=== PATIENT | female | born 1960 | race Hispanic/Latino ===

== ENCOUNTER 2017-11-04 11:13 | Inpatient (IN) | payer OTHER ==
[~2017-11-04] VITALS: Ht 152.4 cm; Wt 70.5 kg
[~2017-11-04 11:13] MED LIST: ATORVASTATIN CA20 MG PO; BENTYL10 MG PO; FENOFIBRATE145 MG PO; FEOSOL325 MG PO; HUMALOG100 UNITS/ SQ; Insulin Detemir SQ; LIPITOR10 MG PO; LOPRESSOR25 MG PO; METFORMIN HCL500 MG PO; TRICOR145 MG PO
[2017-11-04] MEDS ORDERED: MORPHINE SULFATE 4 MG/ML SYR IV STA (11:26)
[2017-11-04] MEDS ORDERED: SODIUM CHLORIDE 0.9% 1000ML 1,000 ML IV STA (11:26)
[2017-11-04] MEDS ORDERED: ONDANSETRON HCL INJ 2 MG/ML VIAL IV STA (11:26)
[2017-11-04] MEDS ORDERED: BELLADONNA ALK/PHENOBARBITAL 5 ML UDC PO ONE (11:30)
[2017-11-04] MEDS ORDERED: LIDOCAINE VISC 2% SOLN 15 ML UDC PO ONE (11:30)
[2017-11-04] MEDS ORDERED: ASPIRIN 81 MG CHEW TAB PO ONE (11:30)
[2017-11-04] MEDS ORDERED: MAGNESIUM/ALUMINUM/SIMETHICONE 30 ML UDC PO ONE (11:30)
[2017-11-04] MEDS ORDERED: MORPHINE SULFATE 2 MG/ML SYR ONE (12:01)
[2017-11-04 12:02] LABS: ALBUMIN/GLOBULIN RATIO 0.5 (0.8-2.0); ALKALINE PHOSPHATASE 141 IU/L (40-150); BLOOD UREA NITROGEN 13 mg/dL (7-26); BUN/CREATININE RATIO 17 (6-25); CALCIUM 9.3 mg/dL (8.4-10.2); CARBON DIOXIDE 20 mmol/L (22-29); CHLORIDE 100 mmol/L (98-107); CHOL/HDL RATIO 13.7 (3.0-3.6); CHOLESTEROL 343 MD/DL (0-199); CREATINE KINASE 26 IU/L (29-168); CREATININE, SERUM 0.75 mg/dL (0.57-1.11); EST GLOMERULAR FILTRATION RATE > 60 ML/MIN (60-); GLUCOSE 249 mg/dL (74-118); HDL CHOLESTEROL 25 MG/DL (40-60); LIPASE 730 U/L (8-78); SODIUM 132 mmol/L (136-145)
--- NOTE | 2017-11-04 12:06 | Diagnostic Imaging Report ---
PROCEDURE: A single AP view of the chest. COMPARISON: Patients [facility], , CHEST SINGLE (PORTABLE), 07/06/2017, 5:57. INDICATIONS: SEVERE ABDOMEN PAIN FINDINGS: Lines/tubes: None. Lungs: The lungs are well inflated and clear. There is no evidence of pneumonia or pulmonary edema. Pleura: There is no pleural effusion or pneumothorax. Heart and mediastinum: Prominence of the cardiac silhouette, which may be partly due to portable AP projection. Pulmonary vasculature is normal. Bones: No acute bony abnormality. IMPRESSION: 1. No acute cardiopulmonary abnormalities. 2. Prominent cardiac silhouette,, which may be partly due to the AP projection. Mayo Junior M.D. Dictated by: Mayo Junior M.D. on 11/04/2017 at 12:14 Electronically approved by: Mayo Junior M.D. on 11/04/2017 at 12:14
[2017-11-04 12:09] LABS: TROPONIN I 0.017 ng/mL (0-0.300)
[2017-11-04 12:10] LABS: BASOPHILS % 0.3 % (0.0-1.0); EOSINOPHILS # (AUTO) 0.1 (0.0-0.4); EOSINOPHILS % 1.2 % (0.0-6.0); HEMOGLOBIN 14.5 g/dL (12.0-16.0); LYMPHOCYTES # (AUTO) 5.1 (1.0-3.2); LYMPHOCYTES % 57.9 % (18.0-39.1); MEAN CORPUSCULAR HEMOGLOBIN 33.4 pg (28-32); MEAN CORPUSCULAR HGB CONC 40.3 g/dL (31-35); MEAN CORPUSCULAR VOLUME 82.9 fL (81-99); MONOCYTES # (AUTO) 0.4 (0.2-0.8); MONOCYTES % 4.1 % (4.4-11.3); NEUTROPHILS # (AUTO) 3.2 (2.1-6.9); NEUTROPHILS % 36.3 % (38.7-80.0); PLATELET COUNT 303 x10e3/uL (140-360); RED BLOOD COUNT 4.34 x10e6/uL (3.6-5.1); RED CELL DISTRIBUTION WIDTH 11.9 % (11.7-14.4)
[2017-11-04 13:03] LABS: ALANINE AMINOTRANSFERASE 35 IU/L (0-55)
[2017-11-04 13:12] LABS: TRIGLYCERIDES 3239 MG/DL (0-149)
--- NOTE | 2017-11-04 13:17 | Diagnostic Imaging Report ---
PROCEDURE:GALLBLADDER ULTRASOUND COMPARISON:[facility], CT, CT ABDOMEN WOW, 07/07/2017, 13:09. INDICATIONS:RUQ Pain FINDINGS: Liver: 14.5 cm. Normal hepatic parenchymal echogenicity. No focal mass. Main portal vein: 1.3 cm. Hepatopetal flow. Gallbladder: No stones, sludge, wall thickening, or pericholecystic fluid. Common Bile Duct: 0.4 cm. No echogenic filling defect. Sonographic Davis's sign: Negative Right kidney: 11.9 cm. No solid or cystic mass, echogenic calculi, or hydronephrosis. Normal parenchymal echogenicity. Pancreas: The visualized portions of the pancreas are normal. Inferior vena cava: Normal. Aorta: Normal. Ascites: None. CONCLUSION: 1. no sonographic evidence of cholelithiasis or cholecystitis. 2. Essentially unremarkable exam. Mayo Junior M.D. Dictated by: Mayo Junior M.D. on 11/04/2017 at 13:25 Electronically approved by: Mayo Junior M.D. on 11/04/2017 at 13:25
[2017-11-04 13:33] LABS: BILIRUBIN,URINE NEGATIVE (NEGATIVE); CLARITY,URINE CLEAR (CLEAR); COLOR,URINE YELLOW (YELLOW); KETONES,URINE NEGATIVE (NEGATIVE); LEUKOCYTE ESTERASE ,URINE NEGATIVE (NEGATIVE); NITRITE,URINE NEGATIVE (NEGATIVE); PROTEIN,URINE DIPSTICK NEGATIVE (NEGATIVE); URINE UROBILINOGEN 0.2 mg/dL (0.2 - 1)
[2017-11-04 14:16] LABS: EPITHELIAL CELLS,URINE MANY /LPF
[2017-11-04 14:17] LABS: RBC,URINE 0-5 /HPF (0-5); WBC,URINE (MAN) 0-5 /HPF (0-5)
--- NOTE | 2017-11-04 14:34 | Diagnostic Imaging Report ---
PROCEDURE: CT ABDOMEN AND PELVIS WITH CONTRAST TECHNIQUE: The abdomen and pelvis were scanned utilizing a multidetector helical scanner from the diaphragm to the lesser trochanter after the IV administration of 100 cc of Isovue 370 and the oral administration of water. Coronal and sagittal multiplanar reformations were obtained. COMPARISON: Patients [facility], CT, CT ABDOMEN/PELVIS W, 07/06/2017, 3:44. Patients [facility], CT, CT ABDOMEN WOW, 07/07/2017, 13:09. INDICATIONS: ABDOMINAL PAIN FINDINGS: LOWER THORAX: Minimal bilateral lower lobe dependent atelectasis. HEPATOBILIARY: Decrease attenuation of the hepatic parenchyma compared to the spleen, consistent with steatosis.. No focal lesions. No biliary ductal dilation. Gallbladder is unremarkable. SPLEEN: No splenomegaly.. PANCREAS: No focal lesion or ductal dilation. ADRENALS: Stable 2.3 x 2.0 cm right adrenal lesion previously characterized as a benign, lipid rich adenoma. Left adrenal gland is unremarkable. KIDNEYS/URETERS: No hydronephrosis, stones, or solid mass lesions. PELVIC ORGANS/BLADDER: Bladder is unremarkable. Uterus is unremarkable. No adnexal masses. PERITONEUM / RETROPERITONEUM: No free air or fluid. LYMPH NODES: No lymphadenopathy. VESSELS: The atherosclerotic calcification of the abdominal aorta. GI TRACT: No bowel dilation or evidence of obstruction. No pericolonic inflammatory changes. Stomach is grossly unremarkable. BONES AND SOFT TISSUES: No acute bony abnormalities. Facet hypertrophy L4-L5, L5-S1, which is stable. No lytic lesions. Soft tissues are grossly unremarkable. IMPRESSION: 1. No acute abdominopelvic abnormalities. 2. Diffuse hepatic steatosis. No focal lesions. 3. Stable right adrenal benign, lipid rich adenoma. No further diagnostic imaging is indicated. Mayo Junior M.D. Dictated by: Mayo Junior M.D. on 11/04/2017 at 14:42 Electronically approved by: Mayo Junior M.D. on 11/04/2017 at 14:42
[2017-11-04] MEDS ORDERED: IOPAMIDOL 370 MG/ML 200 ML INFUS..BTL INJ ONE (15:12)
[2017-11-04] MEDS ORDERED: SODIUM CHLORIDE 0.9% 50ML 50 ML ONE (15:12)
[2017-11-04] MEDS ORDERED: MORPHINE SULFATE 2 MG/ML SYR IV STA (15:13)
[2017-11-04] MEDS ORDERED: ONDANSETRON HCL INJ 2 MG/ML VIAL IV PRN (15:15)
[2017-11-04] MEDS ORDERED: HYDROMORPHONE 1MG/1ML INJ IV STA (15:40)
[2017-11-04] MEDS ORDERED: PROMETHAZINE 12.5MG/ NACL 0.9% 12.5 MG/50 ML BAG IV ONE (15:45)
[2017-11-04] MEDS ORDERED: DICYCLOMINE HCL 10 MG CAP PO PRN (17:15)
[2017-11-04] MEDS ORDERED: SODIUM BICARBONATE 650 MG TAB PO ONE (17:15)
--- NOTE | 2017-11-04 17:41 | History and Physical ---
PRIMARY CARE PHYSICIAN: Jake Steele MD CLINICAL HISTORY: This is a 57-year-old woman seen in the emergency room at [facility] and known to our service from previous evaluations and admitted because of recurrent pancreatitis. This patient was hospitalized in June with possible sepsis including fever, diarrhea, abdominal pains and vomiting. There is history of previous hospitalization with pancreatitis in July 2016. According to the daughter, the patient has not been compliant with respect to her medications, in particular medications for hyperlipidemia, including severe hypertriglyceridemia. She has history of adrenal mass of 2.6 cm. Apparently this has been stable and was not getting bigger. Interventional radiology had declined to intervene. There is history of urinary incontinence and headaches. PAST MEDICAL HISTORY: Also remarkable for tubal ligation, fundoplication, surgery for hiatal hernia, bilateral carpal tunnel surgery, breast biopsy. MEDICATIONS AT HOME: Include: 1. Atorvastatin 20 mg per day. 2. Bentyl 100 mg per day. 3. Fenofibrate 145 mg daily. 4. Feosol 325 mg daily. 5. Metformin 500 mg p.o. t.i.d. 6. Metoprolol tartrate 25 mg p.o. b.i.d. PERSONAL AND SOCIAL HISTORY: Denies smoking, drinking, drug abuse. 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 REVIEW OF SYSTEMS: Noncontributory. PHYSICAL EXAMINATION GENERAL: She is sedated with pain medications. CARDIAC: Jugular veins are not distended. S1, S2 are regular. There is a 1/6 systolic murmur. ABDOMEN: Diminished bowel sounds. There is significant tenderness. There is some guarding. EXTREMITIES: No cyanosis, clubbing, or edema. LABORATORY STUDIES: White count was 8800, hemoglobin 14.5, platelet count 303,000. Sodium 132, potassium 4.0, bicarb 20, BUN 13, creatinine 0.75. CK 26, CK-MB 1.4. Triglycerides 3239, cholesterol 343, HDL 25, lipase 730. Urinalysis: 3+ glucose. IMPRESSION 1. Recurrent acute pancreatitis with pain starting this morning. 2. Metabolic acidosis, apparently recurrent. 3. Diabetes. 4. Noncompliance with medications. 5. Severe hypertriglyceridemia. 6. Hypercholesterolemia. 7. History of urinary incontinence. 8. History of stable right adrenal mass of 2.6 cm. 9. History of headaches. 10. History of tubal ligation, hiatal hernia fundoplication, bilateral carpal tunnel surgery, right breast biopsy. RECOMMENDATIONS: GI consultation. This patient has seen Dr. Edil Howard in the past. Resume home medications, intravenous fluids and pain medications. Correct metabolic abnormalities. Job#: [id number] cc:MD EDIL GLORIA MD
[2017-11-04] MEDS: SODIUM CHLORIDE 0.9% 1000ML 1,000 ML IV SCH ×3 (18:30→23:44)
[2017-11-04] MEDS: MORPHINE SULFATE 2 MG/ML SYR IV PRN ×3 (20:00→22:10)
[2017-11-04 20:46] VITALS: BP 104/68
[2017-11-04] MEDS: ATORVASTATIN 40 MG TAB PO SCH (21:00)
[2017-11-04] MEDS ORDERED: ATORVASTATIN 20 MG TAB PO SCH (21:00)
[2017-11-04] MEDS: METFORMIN HCL 500 MG TAB PO SCH (22:10)
[2017-11-04 23:18] VITALS: BP 104/68
[2017-11-05] VITALS (7 sets, daily range): BP systolic 99–132; BP diastolic 59–70
[2017-11-05] MEDS: MORPHINE SULFATE 2 MG/ML SYR IV PRN ×5 (00:43→21:00)
[2017-11-05] MEDS: PROMETHAZINE 12.5MG/ NACL 0.9% 12.5 MG/50 ML BAG IV PRN ×5 (00:44→21:00)
[2017-11-05] MEDS: SODIUM CHLORIDE 0.9% 1000ML 1,000 ML IV SCH ×5 (06:17→22:30)
[2017-11-05 07:01] LABS: BASOPHILS % 0.1 % (0.0-1.0); EOSINOPHILS # (AUTO) 0.1 (0.0-0.4); EOSINOPHILS % 1.2 % (0.0-6.0); HEMATOCRIT 28.8 % (34.2-44.1); HEMOGLOBIN 10.4 g/dL (12.0-16.0); LYMPHOCYTES # (AUTO) 3.1 (1.0-3.2); LYMPHOCYTES % 35.1 % (18.0-39.1); MEAN CORPUSCULAR HEMOGLOBIN 30.4 pg (28-32); MEAN CORPUSCULAR HGB CONC 36.1 g/dL (31-35); MEAN CORPUSCULAR VOLUME 84.2 fL (81-99); MONOCYTES # (AUTO) 0.5 (0.2-0.8); MONOCYTES % 5.3 % (4.4-11.3); NEUTROPHILS # (AUTO) 5.2 (2.1-6.9); NEUTROPHILS % 58.1 % (38.7-80.0); PLATELET COUNT 224 x10e3/uL (140-360); RED BLOOD COUNT 3.42 x10e6/uL (3.6-5.1); RED CELL DISTRIBUTION WIDTH 12.3 % (11.7-14.4)
[2017-11-05 07:27] LABS: ALANINE AMINOTRANSFERASE 13 IU/L (0-55); ALBUMIN 2.7 g/dL (3.5-5.0); ALBUMIN/GLOBULIN RATIO 0.8 (0.8-2.0); ALKALINE PHOSPHATASE 88 IU/L (40-150); AMYLASE 201 U/L (25-125); ANION GAP 14.6 mmol/L (8-16); BLOOD UREA NITROGEN 7 mg/dL (7-26); BUN/CREATININE RATIO 12 (6-25); CARBON DIOXIDE 17 mmol/L (22-29); CHLORIDE 108 mmol/L (98-107); EST GLOMERULAR FILTRATION RATE > 60 ML/MIN (60-); GLUCOSE 193 mg/dL (74-118); LIPASE 337 U/L (8-78); POTASSIUM 3.6 mmol/L (3.5-5.1); SODIUM 136 mmol/L (136-145)
[2017-11-05 07:58] LABS: TRIGLYCERIDES 816 MG/DL (0-149)
[2017-11-05] MEDS: METFORMIN HCL 500 MG TAB PO SCH ×3 (08:00→17:17)
[2017-11-05] MEDS: METOPROLOL TARTRATE 25 MG TAB PO SCH ×2 (09:00→17:00)
[2017-11-05] MEDS: FENOFIBRATE 145 MG TAB PO SCH (09:00)
[2017-11-05] MEDS: FERROUS SULFATE 325 MG TAB PO SCH (09:00)
[2017-11-05] MEDS ORDERED: POTASSIUM CHLORIDE 20 MEQ TAB CR PO STA (10:53)
[2017-11-05] MEDS ORDERED: OYST-CAL-D 500MG TABLET PO ONE (11:00)
[2017-11-05 11:23] LABS: % IRON SATURATION 11 % (15-50); IRON 33 ug/dL (50-170); TOTAL IRON BINDING CAPACITY 309 ug/dL (261-478); TRANSFERRIN 221 mg/dL (180-382)
[2017-11-05] MEDS: SODIUM BICARBONATE 650 MG TAB PO SCH (12:36)
[2017-11-05] MEDS: ATORVASTATIN 40 MG TAB PO SCH (21:00)
[2017-11-06] VITALS: BP 123/71
[2017-11-06] MEDS: PROMETHAZINE 12.5MG/ NACL 0.9% 12.5 MG/50 ML BAG IV PRN ×6 (01:45→23:30)
[2017-11-06] MEDS: MORPHINE SULFATE 2 MG/ML SYR IV PRN ×6 (01:45→23:30)
[2017-11-06] MEDS: SODIUM CHLORIDE 0.9% 1000ML 1,000 ML IV SCH ×6 (01:45→23:30)
[2017-11-06 04:00] VITALS: BP 138/77
[2017-11-06 07:42] VITALS: BP 125/73
[2017-11-06 07:51] LABS: AMYLASE 79 U/L (25-125); LIPASE 75 U/L (8-78)
[2017-11-06] MEDS ORDERED: SODIUM BICARBONATE 650 MG TAB PO SCH (09:00)
[2017-11-06 09:27] LABS: ANION GAP 9.6 mmol/L (8-16); BLOOD UREA NITROGEN < 5 mg/dL (7-26); CALCIUM 8.2 mg/dL (8.4-10.2); CARBON DIOXIDE 24 mmol/L (22-29); CHLORIDE 108 mmol/L (98-107); CREATININE, SERUM 0.61 mg/dL (0.57-1.11); EST GLOMERULAR FILTRATION RATE > 60 ML/MIN (60-); GLUCOSE 128 mg/dL (74-118); POTASSIUM 3.6 mmol/L (3.5-5.1); SODIUM 138 mmol/L (136-145)
[2017-11-06 09:31] LABS: BUN/CREATININE RATIO 8 (6-25)
[2017-11-06] MEDS: METFORMIN HCL 500 MG TAB PO SCH ×3 (09:59→17:30)
[2017-11-06] MEDS: FERROUS SULFATE 325 MG TAB PO SCH (09:59)
[2017-11-06] MEDS: METOPROLOL TARTRATE 25 MG TAB PO SCH ×2 (10:00→17:30)
[2017-11-06] MEDS: SODIUM BICARBONATE 650 MG TAB PO SCH ×2 (10:00)
[2017-11-06] MEDS: FENOFIBRATE 145 MG TAB PO SCH (10:00)
[2017-11-06 11:50] VITALS: BP 125/72
[2017-11-06 15:48] VITALS: BP 129/69
[2017-11-06 20:00] VITALS: BP 135/72
[2017-11-06] MEDS: ATORVASTATIN 40 MG TAB PO SCH (21:00)
[2017-11-07] VITALS: BP 129/70
[2017-11-07] MEDS: SODIUM CHLORIDE 0.9% 1000ML 1,000 ML IV SCH ×5 (03:00→20:22)
[2017-11-07 04:00] VITALS: BP 144/76
[2017-11-07] MEDS: PROMETHAZINE 12.5MG/ NACL 0.9% 12.5 MG/50 ML BAG IV PRN (05:43)
[2017-11-07] MEDS: MORPHINE SULFATE 2 MG/ML SYR IV PRN (05:43)
[2017-11-07 07:45] LABS: AMYLASE 63 U/L (25-125); LIPASE 37 U/L (8-78); TRIGLYCERIDES 252 MG/DL (0-149)
[2017-11-07 08:00] VITALS: BP 130/78
[2017-11-07] MEDS: METFORMIN HCL 500 MG TAB PO SCH ×3 (08:00→17:00)
[2017-11-07] MEDS: SODIUM BICARBONATE 650 MG TAB PO SCH (09:00)
[2017-11-07] MEDS: METOPROLOL TARTRATE 25 MG TAB PO SCH ×2 (09:00→17:00)
[2017-11-07] MEDS: FERROUS SULFATE 325 MG TAB PO SCH (09:00)
[2017-11-07] MEDS: FENOFIBRATE 145 MG TAB PO SCH (09:00)
[2017-11-07 12:00] VITALS: BP 127/76
[2017-11-07 16:00] VITALS: BP 148/90
[2017-11-07] MEDS: HYDROCODONE/APAP 5MG-325MG TAB PO PRN (19:32)
[2017-11-07 20:00] VITALS: BP 134/87
[2017-11-07] MEDS: ATORVASTATIN 40 MG TAB PO SCH (21:50)
[2017-11-07] MEDS ORDERED: PANTOPRAZOLE 40 MG 10ML VIAL IV STA (23:05)
[2017-11-08] VITALS: BP 117/65
[2017-11-08 05:00] VITALS: BP 132/68
[2017-11-08] MEDS: HYDROCODONE/APAP 5MG-325MG TAB PO PRN (05:00)
[2017-11-08] MEDS: SODIUM CHLORIDE 0.9% 1000ML 1,000 ML IV SCH (06:01)
[2017-11-08 08:05] VITALS: BP 125/78
[2017-11-08] MEDS: FERROUS SULFATE 325 MG TAB PO SCH (08:30)
[2017-11-08] MEDS: METFORMIN HCL 500 MG TAB PO SCH (08:30)
[2017-11-08] MEDS: SODIUM BICARBONATE 650 MG TAB PO SCH (08:30)
[2017-11-08] MEDS: METOPROLOL TARTRATE 25 MG TAB PO SCH (08:30)
[2017-11-08] MEDS: FENOFIBRATE 145 MG TAB PO SCH (08:30)
[2017-11-08] MEDS ORDERED: PANTOPRAZOLE 40 MG 10ML VIAL IV SCH (09:00)
[2017-11-08] MEDS ORDERED: TUMS300 MG PO (11:02)
--- NOTE | 2017-11-08 12:10 | Discharge Summary ---
CLINICAL HISTORY: This is a 57-year-old woman noncompliant with her medications including triglyceride medications, admitted via the emergency room because of severe hypertriglyceridemia and severe recurrent pancreatitis. Please refer to my previous dictation concerning details of current illness, past medical history, personal and social history, family history, review of systems, physical examination, initial laboratory studies. HOSPITAL COURSE: The patient was placed on n.p.o. except for medications and had marked improvement in her triglyceride and cholesterol level as well as returning lipase and amylase back to normal. Her abdominal pain was controlled initially with parenteral pain medications, subsequently with oral pain medication satisfactorily. She was able to tolerate solids without much complaint of abdominal pains. She is anxious to go home for [place]. She is discharged to be followed up with Dr. Dominick Steele. DISCHARGE DIAGNOSES: 1. Recurrent acute pancreatitis. 2. Severe hypertriglyceridemia with patient noncompliant with medications. 3. Metabolic acidosis, apparently recurrent. 4. Diabetes. 5. Hypercholesterolemia. 6. History of urinary incontinence. 7. Stable right adrenal mass measuring around 2.6 cm. 8. History of headaches. 9. History of tubal ligation, hiatal hernia, fundoplication, bilateral carpal tunnel surgery and right breast biopsy. The patient is discharged on her previous medications. Because of recurrent acidosis, it is recommended that she take 2 TUMS tablets daily to prevent recurrent acidosis. DAVID MONTOYA MD Job#: [id number] EV cc:DOMINICK STEELE MD
== END 2017-11-08 11:35 | disposition home or self-care (01) | DRG 439 ==
LOC: ER 11:13 → ERHOLD 16:18 → MED/SURG3 20:26
PROVIDERS: ADMIT Internal Medicine Cardiovascular Disease; ATTEND Internal Medicine Cardiovascular Disease
DX: K85.90 Acute pancreatitis without necrosis or infection, unspecified (principal); E87.2 Acidosis; E78.1 Pure hyperglyceridemia; E11.9 Type 2 diabetes mellitus without complications; D35.01 Benign neoplasm of right adrenal gland; D50.9 Iron deficiency anemia, unspecified; Z91.19 Patient's noncompliance with other medical treatment and regimen; Z79.4 Long term (current) use of insulin; R32 Unspecified urinary incontinence
CPT/HCPCS: 36415; 71010; 74177; 76705; 80048; 80053; 80061; 81001; 82150; 82550; 82553; 82948; 83540; 83690; 84466; 84478; 84484; 85025; 87086; 93005; 96367; 99284; J1170; J2270; J2405; J2550; J7030; Q9967

== ENCOUNTER 2018-01-03 07:50 | Emergency (ER) | payer OTHER ==
[~2018-01-03] VITALS: Ht 152.4 cm; Wt 70.3 kg
[~2018-01-03 07:50] MED LIST changes: +TUMS300 MG PO
[2018-01-03] MEDS ORDERED: FAMOTIDINE 20 MG/2 ML VIAL IV STA (08:20)
[2018-01-03] MEDS ORDERED: PROMETHAZINE 12.5MG/ NACL 0.9% 12.5 MG/50 ML BAG IV ONE (08:30)
[2018-01-03] MEDS ORDERED: SODIUM CHLORIDE 0.9% 1000ML 1,000 ML IV SCH (08:30)
[2018-01-03] MEDS ORDERED: MORPHINE SULFATE 4 MG/ML SYR IV PRN (08:30)
[2018-01-03 09:00] LABS: BASOPHILS % 0.2 % (0.0-1.0); EOSINOPHILS # (AUTO) 0.1 (0.0-0.4); EOSINOPHILS % 0.4 % (0.0-6.0); HEMATOCRIT 34.7 % (34.2-44.1); LYMPHOCYTES % 6.5 % (18.0-39.1); MEAN CORPUSCULAR HEMOGLOBIN 29.8 pg (28-32); MEAN CORPUSCULAR HGB CONC 34.6 g/dL (31-35); MEAN CORPUSCULAR VOLUME 86.1 fL (81-99); MONOCYTES # (AUTO) 0.8 (0.2-0.8); MONOCYTES % 5.2 % (4.4-11.3); NEUTROPHILS % 87.1 % (38.7-80.0); PLATELET COUNT 289 x10e3/uL (140-360); RED BLOOD COUNT 4.03 x10e6/uL (3.6-5.1); RED CELL DISTRIBUTION WIDTH 12.3 % (11.7-14.4)
[2018-01-03] MEDS ORDERED: MORPHINE SULFATE 2 MG/ML SYR IV PRN (09:00)
[2018-01-03 09:07] LABS: BILIRUBIN,URINE NEGATIVE (NEGATIVE); KETONES,URINE NEGATIVE (NEGATIVE); LEUKOCYTE ESTERASE ,URINE NEGATIVE (NEGATIVE); NITRITE,URINE NEGATIVE (NEGATIVE); PROTEIN,URINE DIPSTICK NEGATIVE (NEGATIVE); URINE UROBILINOGEN 0.2 mg/dL (0.2 - 1)
[2018-01-03 09:11] LABS: CLARITY,URINE CLEAR (CLEAR); COLOR,URINE YELLOW (YELLOW)
[2018-01-03 09:15] LABS: BACTERIA,URINE RARE /HPF; EPITHELIAL CELLS,URINE FEW /LPF; RBC,URINE 0-5 /HPF (0-5); WBC,URINE (MAN) 0-5 /HPF (0-5)
[2018-01-03 09:16] LABS: MUCUS,URINE FEW (RARE); URIC ACID CRYSTALS,URINE FEW (FEW)
[2018-01-03 09:19] LABS: ALANINE AMINOTRANSFERASE 12 IU/L (0-55); ALBUMIN 4.1 g/dL (3.5-5.0); ALKALINE PHOSPHATASE 103 IU/L (40-150); AMYLASE 65 U/L (25-125); BLOOD UREA NITROGEN 27 mg/dL (7-26); BUN/CREATININE RATIO 35 (6-25); CARBON DIOXIDE 20 mmol/L (22-29); CHLORIDE 106 mmol/L (98-107); CREATINE KINASE 61 IU/L (29-168); CREATININE, SERUM 0.77 mg/dL (0.57-1.11); EST GLOMERULAR FILTRATION RATE > 60 ML/MIN (60-); GLUCOSE 252 mg/dL (74-118); LIPASE 33 U/L (8-78); SODIUM 136 mmol/L (136-145)
[2018-01-03] MEDS ORDERED: DIATRIZOATE MEGL/DIATRIZOA SOD 30 ML BTL PO ONE (10:26)
--- NOTE | 2018-01-03 12:21 | Diagnostic Imaging Report ---
EXAM: CT Abdomen and Pelvis WITH contrast INDICATION: \S\upper abd pain COMPARISON: Abdominal CT 07/06/2017 TECHNIQUE: Abdomen and pelvis were scanned utilizing a multidetector helical scanner from the lung base to the pubic symphysis after administration of IV contrast. Coronal and sagittal reformations were obtained. Routine protocol was performed. Scan was performed when during portal venous phase. IV CONTRAST: 100 mL of Isovue-370 ORAL CONTRAST: Gastroview COMPLICATIONS: None RADIATION DOSE: Total DLP: 446.6 mGy*cm Estimated effective dose: (DLP x 0.015 x size factor) mSv CTDIvol has been reviewed. It is below the limits set by the Radiation Protocol Committee (RPC). FINDINGS: LINES and TUBES: None. LOWER THORAX: Unremarkable HEPATOBILIARY: Diffuse hypoattenuation of the liver suggestive of hepatic steatosis. No focal hepatic lesions. No biliary ductal dilation. GALLBLADDER: No radio-opaque stones or sludge. No wall thickening. SPLEEN: No splenomegaly. PANCREAS: No focal masses or ductal dilatation. ADRENALS: Right adrenal indeterminate nodule measures approximately 2.8 x 2.5 x 1.8 cm (previously 2.7 x 2.4 x 1.9 cm on 11/04/2017). No left adrenal nodules. KIDNEYS/URETERS: Kidneys enhance symmetrically. No hydronephrosis. No cystic or solid mass lesions. No stones. GI TRACT: No abnormal distention, wall thickening, or evidence of bowel obstruction. Surgical clips near the gastroesophageal junction which may reflect prior fundoplication. Appendix is normal. PELVIC ORGANS/BLADDER: Unremarkable. LYMPH NODES: No lymphadenopathy. VESSELS: Unremarkable. PERITONEUM / RETROPERITONEUM: No free air or fluid. BONES: Unremarkable. SOFT TISSUES: Unremarkable. IMPRESSION: 1. No acute abnormalities. 2. Grossly unchanged indeterminate right adrenal lesion. MRA 01/03/2017 notes this lesion may reflect a lipid rich adenoma, but incompletely characterized. Signed by: DR. Justin Ludwig MD on 01/03/2018 12:17 PM
[2018-01-03] MEDS ORDERED: KETOROLAC TROMETHAMINE 30 MG/ML VIAL IV STA (12:57)
[2018-01-03 13:51] VITALS: BP 92/58
[2018-01-03] MEDS ORDERED: SODIUM CHLORIDE 0.9% 50ML 50 ML ONE (18:26)
[2018-01-03] MEDS ORDERED: IOPAMIDOL 370 MG/ML 200 ML INFUS..BTL INJ ONE (18:27)
== END 2018-01-03 14:01 | disposition home or self-care (01) ==
LOC: ER 07:50
DX: R10.13 Epigastric pain (principal); R11.0 Nausea; R19.7 Diarrhea, unspecified; E11.9 Type 2 diabetes mellitus without complications; E78.5 Hyperlipidemia, unspecified; E03.9 Hypothyroidism, unspecified; K86.9 Disease of pancreas, unspecified
CPT/HCPCS: 36415; 74177; 80053; 81001; 82150; 82550; 82553; 83690; 84484; 85025; 93005; 99284; J1885; J2270; J2550; J7030; Q9967

== ENCOUNTER 2018-03-31 18:22 | Observation (INO) | payer OTHER ==
[~2018-03-31] VITALS: Ht 152.4 cm; Wt 68.5 kg
--- OUTSIDE RECORDS SUMMARY | 2018-03-31 18:25 | XMS REPORT ---
Author Author [facility] Address Unknown Phone Unavailable Care Team Providers Care Blood Collector Name Role Phone AGUILA RIVERA Unavailable Unavailable DAVID MONTOYA Unavailable Unavailable Problems This patient has no known problems. Allergies, Adverse Reactions, Alerts This patient has no known allergies or adverse reactions. Medications This patient has no known medications. Results Test Description Test Time Test Comments Text Results Atomic Results Result Comments CT ABDOMEN/PELVIS W [place] [address] Patient Name: NIDIA QUAN MR #: [id number] : 1960 Age/Sex: 57/F Req #: [id number] Adm Physician: Ordered by: AGUILA RIVERA MD Report #: [id number] Location: ER Room/Bed: Procedure: [id number] CT/CT ABDOMEN/PELVIS W Exam Date: 01/03/18 Exam Time: 1219 REPORT STATUS: Signed EXAM: CT Abdomen and Pelvis WITH contrast INDICATION: COMPARISON: Abdominal CT TECHNIQUE: Abdomen and pelvis were scanned utilizing a multidetector helical scanner from the lung base to the pubic symphysis after administration of IV contrast. Coronal and sagittal reformations were obtained. Routine protocol was performed. Scan was performed when during portal venous phase. IV CONTRAST: 100 mL of Isovue-370 ORAL CONTRAST: Gastroview COMPLICATIONS: None RADIATION DOSE: Total DLP: 446.6 mGy*cm Estimated effective dose: (DLP x 0.015 x size factor) mSv CTDIvol has been reviewed. It is below the limits set by the Radiation Protocol Committee (RPC). FINDINGS: LINES and TUBES : None. LOWER THORAX: Unremarkable HEPATOBILIARY: Diffuse hypoattenuation of the liver suggestive of hepatic steatosis. No focal hepatic lesions. No biliary ductal dilation. GALLBLADDER: No radio-opaque stones or sludge. No wall thickening. SPLEEN: No splenomegaly. PANCREAS: No focal masses or ductal dilatation. ADRENALS: Right adrenal indeterminate nodule measures approximately 2.8 x 2.5 x 1.8 cm (previously 2.7 x 2.4 x 1.9 cm on 11/04/2017). No left adrenal nodules. KIDNEYS/ URETERS: Kidneys enhance symmetrically. No hydronephrosis. No cystic or solid mass lesions. No stones. GI TRACT: No abnormal distention, wall thickening, or evidence of bowel obstruction. Surgical clips near the gastroesophageal junction which may reflect prior fundoplication. Appendix is normal. PELVIC ORGANS/BLADDER: Unremarkable. LYMPH NODES: No lymphadenopathy. VESSELS: Unremarkable. PERITONEUM / RETROPERITONEUM: No free air or fluid. BONES: Unremarkable. SOFT TISSUES: Unremarkable. IMPRESSION: 1. No acute abnormalities. 2. Grossly unchanged indeterminate right adrenal lesion. MRA 01/03/2017 notes this lesion may reflect a lipid rich adenoma, but incompletely characterized. Signed by: DR. Justin Dumont MD on 01/03/2018 12:17 PM Dictated By: JUSTIN DUMONT MD 1217 Transcribed By: ADRIÁN on 01/03/18 1217 COPY TO: AGUILA RIVERA MD CHEST SINGLE (PORTABLE) [place] [address] Patient Name: NIDIA QUAN MR #: [id number] : 1960 Age/Sex: 57/F Req #: [id number] Adm Physician: DAVID MONTOYA MD Ordered by: CAIT IN[employer]ANTE TRAINING AND DOCUMENTATION SPECIALIST Report #: [id number] Location: MED/SURG3 Room/Bed: 292-1 Procedure: [id number] DX/CHEST SINGLE (PORTABLE) Exam Date: 11/04/17 Exam Time: 1140 REPORT STATUS: Signed PROCEDURE: A single AP view of the chest. COMPARISON: Patients [facility] [place], DX, CHEST SINGLE (PORTABLE), 07/06/2017, 5:57. INDICATIONS: SEVERE ABDOMEN PAIN FINDINGS: Lines/tubes: None. Lungs: The lungs are well inflated and clear. There is no evidence of pneumonia or pulmonary edema. Pleura: There is no pleural effusion or pneumothorax. Heart and mediastinum: Prominence of the cardiac silhouette , which may be partly due to portable AP projection. Pulmonary vasculature is normal. Bones: No acute bony abnormality. IMPRESSION: 1. No acute cardiopulmonary abnormalities. 2. Prominent cardiac silhouette,, which may be partly due to the AP projection. Kyrie Junior M.D. Dictated by: Kyrie Junior M.D. on 11/04/2017 at 12:14 Electronically approved by: Kyrie Junior M.D. on 11/04/2017 at 12:14 Dictated By: KYRIE JUNIOR MD 1214 Transcribed By: AUBREY on 11/04/17 1214 COPY TO: CAIT INFANTE TRAINING AND DOCUMENTATION SPECIALIST CT ABDOMEN/PELVIS W [place] [address] Patient Name: NIDIA QUAN MR #: [id number] : 1960 Age/Sex: 57/F Req #: [id number] Adm Physician: DAVID MONTOYA MD Ordered by: CAIT IN[employer]ANTE TRAINING AND DOCUMENTATION SPECIALIST Report #: [id number] Location: MED/SURG3 Room/Bed: 292-1 Procedure: [id number] CT/CT ABDOMEN/PELVIS W Exam Date: 11/04/17 Exam Time: 1410 REPORT STATUS: Signed PROCEDURE: CT ABDOMEN AND PELVIS WITH CONTRAST TECHNIQUE: The abdomen and pelvis were scanned utilizing a multidetector helical scanner from the diaphragm to the lesser trochanter after the IV administration of 100 cc of Isovue 370 and the oral administration of water. Coronal and sagittal multiplanar reformations were obtained. COMPARISON : [facility], CT, CT ABDOMEN/PELVIS W, 07/06/2017, 3:44. [facility], CT, CT ABDOMEN WOW, 07/07/2017, 13:09. INDICATIONS: ABDOMINAL PAIN FINDINGS: LOWER THORAX: Minimal bilateral lower lobe dependent atelectasis. HEPATOBILIARY: Decrease attenuation of the hepatic parenchyma compared to the spleen, consistent with steatosis.. No focal lesions. No biliary ductal dilation. Gallbladder is unremarkable. SPLEEN: No splenomegaly.. PANCREAS: No focal lesion or ductal dilation. ADRENALS: Stable 2.3 x 2.0 cm right adrenal lesion previously characterized as a benign, lipid rich adenoma. Left adrenal gland is unremarkable. KIDNEYS/URETERS: No hydronephrosis, stones, or solid mass lesions. PELVIC ORGANS/BLADDER: Bladder is unremarkable. Uterus is unremarkable. No adnexal masses. PERITONEUM / RETROPERITONEUM: No free air or fluid. LYMPH NODES : No lymphadenopathy. VESSELS: The atherosclerotic calcification of the abdominal aorta. GI TRACT: No bowel dilation or evidence of obstruction. No pericolonic inflammatory changes. Stomach is grossly unremarkable. BONES AND SOFT TISSUES: No acute bony abnormalities. Facet hypertrophy L4-L5 , L5-S1, which is stable. No lytic lesions. Soft tissues are grossly unremarkable. IMPRESSION: 1. No acute abdominopelvic abnormalities. 2. Diffuse hepatic steatosis. No focal lesions. 3. Stable right adrenal benign, lipid rich adenoma. No further diagnostic imaging is indicated. Kyrie Junior M.D. Dictated by: Kyrie Junior M.D. on 11/04/2017 at 14:42 Electronically approved by: Kyrie Junior M.D. on 11/04/2017 at 14:42 Dictated By: KYRIE JUNIOR MD 1442 Transcribed By: AUBREY on 11/04/17 1442 COPY TO: CAIT INFANTE TRAINING AND DOCUMENTATION SPECIALIST US GALLBLADDER [place] [address] Patient Name: NIDIA QUAN MR #: [id number] : 1960 Age/Sex: 57/F Req # : [id number] Adm Physician: DAVID MONTOYA MD Ordered by: CAIT INFANTE TRAINING AND DOCUMENTATION SPECIALIST Report #: [id number] Location: [facility] Room/Bed: [facility] ___ Procedure: [id number] US/US GALLBLADDER Exam Date: 11/04/17 Exam Time: 1227 REPORT STATUS: Signed PROCEDURE: GALLBLADDER ULTRASOUND COMPARISON: [facility], CT, CT ABDOMEN WOW, 07/07/2017, 13:09. INDICATIONS: RUQ Pain FINDINGS: Liver: 14.5 cm. Normal hepatic parenchymal echogenicity. No focal mass. Main portal vein: 1.3 cm. Hepatopetal flow. Gallbladder: No stones, sludge, wall thickening, or pericholecystic fluid. Common Bile Duct: 0.4 cm. No echogenic filling defect. Sonographic Davis's sign: Negative Right kidney: 11.9 cm. No solid or cystic mass, echogenic calculi, or hydronephrosis. Normal parenchymal echogenicity. Pancreas: The visualized portions of the pancreas are normal. Inferior vena cava: Normal. Aorta: Normal. Ascites: None. CONCLUSION: 1. no sonographic evidence of cholelithiasis or cholecystitis. 2. Essentially unremarkable exam. Kyrie Junior M.D. Dictated by: Kyrie Junior M.D. on 11/04/2017 at 13:25 Electronically approved by: Kyrie Junior M.D. on 11/04/2017 at 13:25 Dictated By: KYRIE JUNIOR MD 1325 Transcribed By: AUBREY on 11/04/17 1325 COPY TO: CAIT INFANTE NP CT ABDOMEN WOW [place] [address] Patient Name: NIDIA QUAN MR #: [id number] : 1960 Age/Sex: 56/F Req # : [id number] [facility] Physician: DAVID MONTOYA MD Ordered by: DAVID MONTOYA MD Report #: [id number] Location: MED/SURG2 Room/Bed: [facility] _ Procedure: [id number] CT/CT ABDOMEN WOW Exam Date: 07/07/17 Exam Time: 1315 REPORT STATUS: Signed PROCEDURE: CT ABDOMEN WITH AND WITHOUT CONTRAST TECHNIQUE: The abdomen was scanned utilizing a multidetector helical scanner from the diaphragm to the iliac crest before and after the IV administration of 100 cc of Isovue 370 and the oral administration of water. The images were obtained in the precontrast, arterial, and delayed phases. Coronal and sagittal multiplanar reformations were obtained. COMPARISON: CT abdomen and pelvis 07/06/2017. INDICATIONS: ADRENAL LESION FINDINGS: ADRENALS: The right adrenal nodule contains attenuation measurements of the following: Precontrast (series 3 image 32): 29.04 Hounsfield units. Postcontrast (series 5 image 11): 75.3 Hounsfield units. Delayed (series 8 image 45): 40.2 Hounsfield units. Absolute washout=75.8% Relative washout=46.6% Normal left adrenal gland. The visualized portions of the abdomen are otherwise unchanged since the previous examination. IMPRESSION: Right adrenal adenoma. Dictated by: Aliya Calles M.D. on 07/07/2017 at 15 :13 Electronically approved by: Aliya Calles M.D. on 07/07/2017 at 15:13 Dictated By: ALIYA CALLES MD 12 Transcribed By: AUBREY on 07/07/171512 COPY TO : DAVID MONTOYA MD CHEST SINGLE (PORTABLE) [place] [address] Patient Name: NIDIA QUAN MR #: [id number] : 1960 Age/Sex: 56/F Req #: [id number] Adm Physician: DAVID MONTOYA MD Ordered by: DO TOMLINSON MD Report #: [id number] Location: [facility] Room/Bed: [place] [address] Procedure: [id number] DX/CHEST SINGLE (PORTABLE) Exam Date: 07/06/17 Exam Time: 0600 REPORT STATUS: Signed EXAMINATION: CHEST SINGLE (PORTABLE) INDICATION: Fever. COMPARISON: None FINDINGS: TUBES and LINES: None. LUNGS: Lungs are well inflated. Lungs are clear. There is no evidence of pneumonia or pulmonary edema. PLEURA: No pleural effusion or pneumothorax. HEART AND MEDIASTINUM: The cardiomediastinal silhouette is unremarkable. BONES AND SOFT TISSUES: No acute osseous lesion. Soft tissues are unremarkable. UPPER ABDOMEN: No free air under the diaphragm. IMPRESSION: No acute thoracic abnormality. Signed by: Dr. Scar Armando M.D. on 07/06/2017 6:19 AM Dictated By: SCAR CLAROS MD 8 COPY TO: DO TOMLINSON MD CT ABDOMEN/PELVIS W [place] [address] Patient Name: NIDIA QUAN MR #: [id number] : 1960 Age/Sex: 56/F Req #: [id number] Adm Physician: Ordered by: DO TOMLINSON MD Report #: [id number] Location: ER Room/Bed: Procedure: [id number] CT/CT ABDOMEN/PELVIS W Exam Date: Exam Time: REPORT STATUS: Signed EXAM: CT Abdomen and Pelvis WITH contrast INDICATION: Abdominal pain COMPARISON: MRI of the abdomen on 01/03/[address] of the abdomen and pelvis on 01/02/2017 TECHNIQUE: Abdomen and pelvis were scanned utilizing a multidetector helical scanner from the lung base to the pubic symphysis after administration of IV contrast. Coronal and sagittal reformations were obtained. Routine protocol was performed. Scan was performed when during portal venous phase. IV CONTRAST: 100 mL of Isovue-370 ORAL CONTRAST: Water RADIATION DOSE: Total DLP: 466.52 mGy*cm Estimated effective dose: (DLP x 0.015 x size factor) mSv COMPLICATIONS: None FINDINGS: LINES and TUBES: None. LOWER THORAX: Unremarkable HEPATOBILIARY: No focal hepatic lesions. No biliary ductal dilation. GALLBLADDER: No radio-opaque stones or sludge. No wall thickening. SPLEEN : No splenomegaly. PANCREAS: No focal masses or ductal dilatation. ADRENALS: 2.7 cm right adrenal lesion appears stable since several 2016 KIDNEYS/URETERS: Kidneys enhance symmetrically. No hydronephrosis. No cystic or solid mass lesions. No stones. GI TRACT: Abnormal thickening of the jejunal wall/mucosa best visualized on series 301, image 31 Appendix is normal. PELVIC ORGANS/BLADDER: Unremarkable. LYMPH NODES: No lymphadenopathy. VESSELS: Unremarkable. PERITONEUM / RETROPERITONEUM: No free air or fluid. BONES: There are degenerative changes in the lumbar spine facet joints. SOFT TISSUES: Unremarkable. IMPRESSION : 1. Nonspecific thickening of the jejunum with mucosal enhancement. Differential diagnosis may include inflammatory versus infectious disease 2. Stable right adrenal mass, indeterminate. Signed by: Dr. Scar Armando M.D. on 07/06/2017 4:50 AM Dictated By: SCAR CLAROS MD 9 Transcribed By: ADRIÁN on 07/06/17449 COPY TO: DO TOMLINSON MD
[2018-03-31] MEDS ORDERED: SODIUM CHLORIDE 0.9% 1000ML 1,000 ML IV STA (18:48)
[2018-03-31] MEDS ORDERED: MORPHINE SULFATE 4 MG/ML SYR IV STA (18:48)
[2018-03-31] MEDS ORDERED: DIATRIZOATE MEGL/DIATRIZOA SOD 30 ML BTL PO ONE (19:30)
[2018-03-31 20:28] LABS: BASOPHILS # (AUTO) 0.1 (0.0-0.1); BASOPHILS % 0.3 % (0.0-1.0); EOSINOPHILS # (AUTO) 0.1 (0.0-0.4); EOSINOPHILS % 0.6 % (0.0-6.0); HEMATOCRIT 37.3 % (34.2-44.1); HEMOGLOBIN 13.2 g/dL (12.0-16.0); LYMPHOCYTES # (AUTO) 2.7 (1.0-3.2); LYMPHOCYTES % 17.4 % (18.0-39.1); MEAN CORPUSCULAR HEMOGLOBIN 30.7 pg (28-32); MEAN CORPUSCULAR HGB CONC 35.4 g/dL (31-35); MEAN CORPUSCULAR VOLUME 86.7 fL (81-99); MONOCYTES # (AUTO) 0.6 (0.2-0.8); MONOCYTES % 3.7 % (4.4-11.3); NEUTROPHILS # (AUTO) 11.9 (2.1-6.9); NEUTROPHILS % 77.7 % (38.7-80.0); PLATELET COUNT 321 x10e3/uL (140-360); RED CELL DISTRIBUTION WIDTH 12.2 % (11.7-14.4)
[2018-03-31] MEDS ORDERED: ONDANSETRON HCL 4 MG ORAL DISINTEGRATING TAB ONE (20:31)
[2018-03-31] MEDS ORDERED: MORPHINE SULFATE 2 MG/ML SYR ONE (20:31)
[2018-03-31 20:41] LABS: ALANINE AMINOTRANSFERASE 15 IU/L (0-55); ALBUMIN 4.2 g/dL (3.5-5.0); ALBUMIN/GLOBULIN RATIO 0.8 (0.8-2.0); ALKALINE PHOSPHATASE 166 IU/L (40-150); AMYLASE 99 U/L (25-125); ANION GAP 18.1 mmol/L (8-16); BLOOD UREA NITROGEN 30 mg/dL (7-26); BUN/CREATININE RATIO 26 (6-25); CALCIUM 10.3 mg/dL (8.4-10.2); CARBON DIOXIDE 20 mmol/L (22-29); CHLORIDE 103 mmol/L (98-107); CREATINE KINASE 107 IU/L (29-168); CREATININE, SERUM 1.15 mg/dL (0.57-1.11); EST GLOMERULAR FILTRATION RATE 48 ML/MIN (60-); LIPASE 110 U/L (8-78); POTASSIUM 5.1 mmol/L (3.5-5.1); SODIUM 136 mmol/L (136-145)
[2018-03-31 20:46] LABS: GLUCOSE 459 mg/dL (74-118)
[2018-03-31 21:00] LABS: BILIRUBIN,URINE NEGATIVE (NEGATIVE); CLARITY,URINE CLEAR (CLEAR); COLOR,URINE YELLOW (YELLOW); KETONES,URINE NEGATIVE (NEGATIVE); LEUKOCYTE ESTERASE ,URINE NEGATIVE (NEGATIVE); NITRITE,URINE NEGATIVE (NEGATIVE); PROTEIN,URINE DIPSTICK NEGATIVE (NEGATIVE); URINE UROBILINOGEN 0.2 mg/dL (0.2 - 1)
[2018-03-31] MEDS ORDERED: INSULIN REGULAR, HUMAN 100 UNIT/1 ML 3ML VIAL SQ ONE (21:00)
[2018-03-31] MEDS: ONDANSETRON HCL INJ 2 MG/ML VIAL IV STA (21:08)
[2018-03-31 21:15] LABS: EPITHELIAL CELLS,URINE RARE /LPF
--- NOTE | 2018-03-31 22:09 | Diagnostic Imaging Report ---
EXAM: Right Upper Quadrant Ultrasound INDICATION: Abdominal pain COMPARISON: None. TECHNIQUE: Transverse and longitudinal images of the right upper abdomen were obtained. FINDINGS: Liver: Size: 15.1 cm in the right midclavicular line, normal Appearance: Normal echogenicity, smooth contour Mass: No focal masses Gallbladder: Stones/Sludge: None Wall: 0.3 cm Appearance: No wall thickening, pericholecystic fluid or hydrops. Sonographic Davis's Sign: Negative Bile Ducts: Intrahepatic Ducts: No dilatation Extrahepatic Ducts: Common bile duct measures 0.5 cm, no dilatation Pancreas: Incompletely visualized due to overlying bowel gas, but no abnormality identified involving the visualized portions of the pancreas. Kidneys: Length: Right 11.3 cm Echogenicity: Normal Collecting System: No hydronephrosis, however, mild pelviectasis is present. Stone: None Cyst/Mass: None Vessels: Aorta: Visualized portions are normal, however, visualization is limited due to bowel gas. Inferior Vena Cava: Visualized portions are normal Main Portal Vein: 1.1 cm, normal size with hepatopetal flow. Free Fluid: No ascites or pleural effusion IMPRESSION: 1. Mild right renal pelviectasis. 2. Otherwise, unremarkable study. Signed by: Dr. Scar Armando M.D. on 03/31/2018 10:05 PM
[2018-03-31] MEDS ORDERED: VASOTEC5 MG PO (22:31)
--- NOTE | 2018-03-31 22:31 | Diagnostic Imaging Report ---
EXAM: CT Abdomen and Pelvis WITH contrast INDICATION: Abdominal distention with acute pain. COMPARISON: 11/04/2017, 01/03/2018. TECHNIQUE: Abdomen and pelvis were scanned utilizing a multidetector helical scanner from the lung base to the pubic symphysis after administration of IV contrast. Coronal and sagittal reformations were obtained. Routine protocol was performed. Scan was performed when during portal venous phase. IV CONTRAST: 100 mL of Isovue-370 ORAL CONTRAST: Gastrografin RADIATION DOSE: Total DLP: For a 7.07 mGy*cm Estimated effective dose: (DLP x 0.015 x size factor) mSv COMPLICATIONS: None FINDINGS: LINES and TUBES: None. LOWER THORAX: Surgical lrary visualized at the GE junction. HEPATOBILIARY: No focal hepatic lesions. No biliary ductal dilation. GALLBLADDER: No radio-opaque stones or sludge. No wall thickening. SPLEEN: No splenomegaly. PANCREAS: No focal masses or ductal dilatation. ADRENALS: 2.5 cm right adrenal mass, indeterminate. The left adrenal gland is unremarkable. KIDNEYS/URETERS: Kidneys enhance symmetrically. No hydronephrosis. No cystic or solid mass lesions. No stones. GI TRACT: No abnormal distention, wall thickening, or evidence of bowel obstruction. Appendix is normal. PELVIC ORGANS/BLADDER: Unremarkable. LYMPH NODES: No lymphadenopathy. VESSELS: There is mild atherosclerotic disease in the aorta and major arterial branches. PERITONEUM / RETROPERITONEUM: No free air or fluid. BONES: Unremarkable. SOFT TISSUES: Unremarkable. IMPRESSION: 1. No evidence of acute intra-abdominal or pelvic abnormality. 2. Postsurgical changes at the GE junction may be related to fundoplication. 3. Indeterminate, stable right adrenal 2.5 cm nodule. Follow-up with nonemergent MRI with and without contrast of the abdomen is recommended Signed by: Dr. Scar Armando M.D. on 03/31/2018 10:27 PM
[2018-03-31] MEDS ORDERED: SODIUM CHLORIDE 0.9% 50ML 50 ML ONE (22:32)
[2018-03-31] MEDS ORDERED: LEVEMIR100 UNIT/1 SC (22:32)
[2018-03-31] MEDS ORDERED: IOPAMIDOL 370 MG/ML 200 ML INFUS..BTL INJ ONE (22:34)
[2018-03-31] MEDS ORDERED: ONDANSETRON HCL 4 MG ORAL DISINTEGRATING TAB PO PRN (22:45)
[2018-03-31] MEDS ORDERED: DEXTROSE 50% SYRINGE 50 ML IV PRN (22:45)
[2018-03-31] MEDS ORDERED: MORPHINE SULFATE 2 MG/ML SYR IV PRN (22:45)
[2018-03-31 23:00] VITALS: BP 129/79
[2018-03-31] MEDS: SODIUM CHLORIDE 0.9% 1000ML 1,000 ML IV SCH (23:06)
[2018-04-01 04:00] VITALS: BP 126/71
[2018-04-01 06:37] LABS: BASOPHILS % 0.3 % (0.0-1.0); EOSINOPHILS # (AUTO) 0.1 (0.0-0.4); EOSINOPHILS % 0.8 % (0.0-6.0); HEMOGLOBIN 10.6 g/dL (12.0-16.0); LYMPHOCYTES # (AUTO) 2.7 (1.0-3.2); LYMPHOCYTES % 37.6 % (18.0-39.1); MEAN CORPUSCULAR HEMOGLOBIN 29.5 pg (28-32); MEAN CORPUSCULAR HGB CONC 34.2 g/dL (31-35); MEAN CORPUSCULAR VOLUME 86.4 fL (81-99); MONOCYTES # (AUTO) 0.4 (0.2-0.8); MONOCYTES % 5.6 % (4.4-11.3); NEUTROPHILS % 55.4 % (38.7-80.0); PLATELET COUNT 245 x10e3/uL (140-360); RED BLOOD COUNT 3.59 x10e6/uL (3.6-5.1); RED CELL DISTRIBUTION WIDTH 12.1 % (11.7-14.4)
[2018-04-01 07:07] LABS: ALANINE AMINOTRANSFERASE 11 IU/L (0-55); ALBUMIN 3.5 g/dL (3.5-5.0); ALBUMIN/GLOBULIN RATIO 1.1 (0.8-2.0); ALKALINE PHOSPHATASE 85 IU/L (40-150); AMYLASE 79 U/L (25-125); BLOOD UREA NITROGEN 20 mg/dL (7-26); BUN/CREATININE RATIO 31 (6-25); CALCIUM 8.7 mg/dL (8.4-10.2); CARBON DIOXIDE 26 mmol/L (22-29); CHLORIDE 108 mmol/L (98-107); CREATININE, SERUM 0.64 mg/dL (0.57-1.11); EST GLOMERULAR FILTRATION RATE > 60 ML/MIN (60-); GLUCOSE 124 mg/dL (74-118); LIPASE 52 U/L (8-78); SODIUM 141 mmol/L (136-145)
[2018-04-01] MEDS: SODIUM CHLORIDE 0.9% 1000ML 1,000 ML IV SCH ×2 (07:24→12:02)
[2018-04-01] MEDS: INSULIN REGULAR, HUMAN 100 UNIT/1 ML 3ML VIAL SQ SCH ×3 (07:30→11:30)
[2018-04-01 08:19] VITALS: BP 98/62
[2018-04-01] MEDS ORDERED: ENALAPRIL MALEATE 5 MG TAB PO SCH (09:00)
[2018-04-01] MEDS ORDERED: FENOFIBRATE 145 MG TAB PO SCH (09:00)
[2018-04-01] MEDS ORDERED: FERROUS SULFAT325 MG PO (11:26)
[2018-04-01 11:30] LABS: CHOL/HDL RATIO 3.6 (3.0-3.6)
[2018-04-01 12:32] VITALS: BP 117/69
--- NOTE | 2018-04-01 12:51 | History and Physical ---
CLINICAL HISTORY: This is a 57-year-old woman with recurrent pancreatitis due to hypertriglyceridemia as well as previous abdominal surgery including fundoplication. Admitted via the emergency room because of mild abdominal pain and borderline elevated lipase of 110 (normal less than 78). Amylase was normal. This patient suffers from insulin-dependent diabetes poorly controlled. She has had multiple previous admissions for similar conditions including one in October of 2017 and one in December of 2016. She was previously under the care of Dr. Lance Hall and Dr. Frederick Goode. Her outpatient physician is Dr. Jake Steele. She presented to the emergency room with the above conditions. Her blood sugar was 459. She states that she is taking her insulin on a regular basis and just had seen Dr. Steele recently in his office. She appears to be volume-depleted with slightly elevated BUN of 30 and creatinine 1.4, GFR of 48. She is slightly acidotic, bicarb of 20. The emergency physician felt the patient should be admitted for observation and wrote orders for her to be observed and to be discharged the following day. PAST MEDICAL HISTORY: Remarkable for a right adrenal mass which was previously evaluated with CT scan, the size of which remains the same. A biopsy was previously requested with Interventional Radiology, but they declined to biopsy, saying that this was an adenomatous lesion, with high site content is not likely to be malignant. Past surgery included tubal ligation, Arvin fundoplication, right breast biopsy, bilateral carpal tunnel surgery. FAMILY HISTORY: Noncontributory. PERSONAL AND SOCIAL HISTORY: She has a lot stress with 2 nephews committing suicide in the last 2 years in February. Sister also is severely ill with congestive heart failure and was hospitalized. She denies smoking. REVIEW OF SYSTEMS: Noncontributory. PHYSICAL EXAMINATION: GENERAL: She is alert, coherent. Appears to be comfortable. CARDIOVASCULAR: Jugular veins were not distended. S1 and S2 were regular. There are no appreciable murmurs. RESPIRATORY: The lungs are clear. ABDOMEN: Soft. Bowel sounds are present. There is no rebound or guarding. EXTREMITIES: Show no cyanosis, clubbing or edema. LABORATORY STUDIES: Sodium 136, potassium 5.1, chloride 103, bicarb 20, BUN 30, creatinine 1.1, glucose 459, magnesium 2.0. Alkaline phosphatase 166. Amylase 99, lipase 110. Urinalysis was 2+ glucose, otherwise negative. White count was 15,200, hemoglobin 13.2, platelet count 321,000. IMPRESSION: 1. Borderline recurrent pancreatitis, the cause of which is likely to be hypertriglyceridemia with previous triglyceride level in the 3000 range. The patient is already taking fenofibrate. Other possibility included previous fundoplication surgery. 2. Benign right adrenal mass, declined by interventional radiologist in December of 2017 for a biopsy. 3. Severe hypertriglyceridemia. 4. Poorly controlled diabetes. Apparently the patient's insulin dose was reduced rather than increased. 5. Mild acidosis and hyponatremia. RECOMMENDATIONS: Intravenous fluids, symptomatic management, encouraged the patient to follow with Gastroenterology and with primary care physician for further adjustment of hyperlipidemia and diabetes. This will also correct her volume depletion issues. Job#: [id number] EV cc:MD NADYA GLORIA MD
--- NOTE | 2018-04-01 16:59 | Discharge Summary ---
CLINICAL HISTORY: This is a 57-year-old woman admitted via the emergency room because of recurrent borderline pancreatitis thought to be due to hypertriglyceridemia as well as previous abdominal surgery included Arvin fundoplication. Please refer to my previous dictation concerning details of current illness, past medical history, personal/social history, family history, review of systems, physical examination and initial laboratory studies. HOSPITAL COURSE: As previously mentioned, the patient's lipase was 110, amylase was 99 with amylase being normal and lipase is borderline increased. The blood sugar high was 459. She was mildly acidotic with bicarb of 20 and volume depleted with BUN 30, creatinine 1.1. Sodium was 136. She was given intravenous fluids as well as additional insulin with blood sugar dropping down to 132 and maintained in the 132 to 167 range. Her bicarb went up to normal at 26, BUN went back to normal at 20, creatinine went back to normal at 0.64. Amylase remained normal at 79 and lipase remained normal at 52. She was able to resume fluids. She was continued on fenofibrate. Triglyceride level was still pending. Urinalysis was normal except for 2+ glucose. Hemoglobin dropped from 13.2 to 10.6 with fluids. This patient has had iron level drawn in the past and she was iron deficient at 33, TIBC of 307, saturation at 11. She was previously given iron sulfate tablets. Previous stool guaiac was positive and she had been previously referred to Dr. Lacy. She is once again referred back to Dr. Lacy for further followup. DISCHARGE DIAGNOSES 1. Borderline recurrent pancreatitis probably due to hypertriglyceridemia and previous abdominal surgery including Arvin fundoplication. 2. Severe hypertriglyceridemia with triglyceride in the past over 3,000, already on fenofibrate. 3. Anemia with iron deficiency and guaiac positive stool in the past requiring further GI followup. Patient being refer to Dr. Lacy which she has seen in the past. 4. Poorly controlled diabetes requiring additional insulin. The patient is referred back to her primary care physician for further adjustments. 5. Stable right adrenal mass likely to be lipomatous benign lesion with interventional radiologist in the past refusing to do biopsy. 6. Volume depletion related to hyperglycemia, corrected. 7. Status post tubal ligation, hiatal hernia surgery, fundoplication, bilateral carpal tunnel surgery, right breast biopsy 8. History of headaches. This patient has paperwork to be filled out for her work and she is referred to her primary care physician. I believe she can probably return back to work at this time. However, I would defer this to the primary care physician. DAVID MONTOYA MD Job#: [id number] DG cc:MD NADYA GLORIA [facility]
[2018-04-02] MEDS ORDERED: INSULIN DETEMIR 35 UNIT SC SCH (09:00)
[2018-04-02] MEDS ORDERED: INSULIN DETEMIR 100 UNIT/ML PEN SQ SCH (09:00)
[2018-04-02] MEDS ORDERED: FERROUS SULFATE 325 MG TAB PO SCH (09:00)
== END 2018-04-01 13:46 | disposition home or self-care (01) ==
LOC: ER 18:22 → IMCU 22:57
PROVIDERS: ADMIT Internal Medicine Cardiovascular Disease; ATTEND Internal Medicine Cardiovascular Disease
DX: K85.90 Acute pancreatitis without necrosis or infection, unspecified (principal); I10 Essential (primary) hypertension; D64.9 Anemia, unspecified; E78.5 Hyperlipidemia, unspecified; Z91.14 Patient's other noncompliance with medication regimen; E78.1 Pure hyperglyceridemia; E27.8 Other specified disorders of adrenal gland; E11.65 Type 2 diabetes mellitus with hyperglycemia; E87.1 Hypo-osmolality and hyponatremia; D50.9 Iron deficiency anemia, unspecified; Z79.84 Long term (current) use of oral hypoglycemic drugs; Z98.890 Other specified postprocedural states
CPT/HCPCS: 36415; 74177; 76705; 80053; 80061; 82150; 82948; 83690; 85025; 96360; G0378 ×2; J2270 ×2; J7030; Q9967

== ENCOUNTER 2018-05-05 22:31 | Inpatient (IN) | payer OTHER ==
[~2018-05-05] VITALS: Ht 152.4 cm; Wt 73.9 kg
[~2018-05-05 22:31] MED LIST changes: +FERROUS SULFAT325 MG PO; +LEVEMIR100 UNIT/1 SC; +VASOTEC5 MG PO
[2018-05-06] MEDS ORDERED: ASPIRIN 81 MG CHEW TAB PO ONE
[2018-05-06 00:08] LABS: BASOPHILS % 0.5 % (0.0-1.0); EOSINOPHILS # (AUTO) 0.1 (0.0-0.4); EOSINOPHILS % 1.4 % (0.0-6.0); HEMATOCRIT 36.3 % (34.2-44.1); HEMOGLOBIN 12.6 g/dL (12.0-16.0); LYMPHOCYTES # (AUTO) 5.2 (1.0-3.2); LYMPHOCYTES % 59.7 % (18.0-39.1); MEAN CORPUSCULAR HEMOGLOBIN 29.9 pg (28-32); MEAN CORPUSCULAR HGB CONC 34.7 g/dL (31-35); MEAN CORPUSCULAR VOLUME 86.2 fL (81-99); MONOCYTES # (AUTO) 0.3 (0.2-0.8); MONOCYTES % 3.5 % (4.4-11.3); NEUTROPHILS % 34.8 % (38.7-80.0); PLATELET COUNT 337 x10e3/uL (140-360); RED BLOOD COUNT 4.21 x10e6/uL (3.6-5.1); RED CELL DISTRIBUTION WIDTH 12.1 % (11.7-14.4)
[2018-05-06 00:19] LABS: ALANINE AMINOTRANSFERASE 14 IU/L (0-55); ALBUMIN 4.2 g/dL (3.5-5.0); ALBUMIN/GLOBULIN RATIO 0.9 (0.8-2.0); ALKALINE PHOSPHATASE 87 IU/L (40-150); ANION GAP 14.3 mmol/L (8-16); BLOOD UREA NITROGEN 21 mg/dL (7-26); BUN/CREATININE RATIO 26 (6-25); CALCIUM 9.9 mg/dL (8.4-10.2); CARBON DIOXIDE 23 mmol/L (22-29); CHLORIDE 105 mmol/L (98-107); CREATININE, SERUM 0.82 mg/dL (0.57-1.11); EST GLOMERULAR FILTRATION RATE > 60 ML/MIN (60-); GLUCOSE 207 mg/dL (74-118); POTASSIUM 4.3 mmol/L (3.5-5.1); SODIUM 138 mmol/L (136-145)
[2018-05-06 00:21] LABS: AMYLASE 103 U/L (25-125); CREATINE KINASE 75 IU/L (29-168); LIPASE 30 U/L (8-78); MAGNESIUM 2.4 MG/DL (1.3-2.1)
[2018-05-06 00:23] LABS: COLOR,URINE YELLOW (YELLOW)
[2018-05-06 00:24] LABS: BILIRUBIN,URINE NEGATIVE (NEGATIVE); CLARITY,URINE CLEAR (CLEAR); KETONES,URINE NEGATIVE (NEGATIVE); LEUKOCYTE ESTERASE ,URINE 1+ (NEGATIVE); NITRITE,URINE NEGATIVE (NEGATIVE); PROTEIN,URINE DIPSTICK NEGATIVE (NEGATIVE); URINE UROBILINOGEN 0.2 mg/dL (0.2 - 1)
[2018-05-06 00:30] LABS: BACTERIA,URINE FEW /HPF; EPITHELIAL CELLS,URINE FEW /LPF
[2018-05-06] MEDS ORDERED: SODIUM CHLORIDE 0.9% 1000ML 1,000 ML IV STA (00:51)
[2018-05-06] MEDS ORDERED: ONDANSETRON HCL INJ 2 MG/ML VIAL IV STA ×2 (00:51→02:26)
[2018-05-06] MEDS ORDERED: PANTOPRAZOLE 40 MG 10ML VIAL IV STA (00:51)
[2018-05-06] MEDS ORDERED: PANTOPRAZOLE 40 MG 10ML VIAL ONE (00:56)
[2018-05-06] MEDS ORDERED: ONDANSETRON HCL INJ 2 MG/ML VIAL ONE (00:56)
[2018-05-06] MEDS ORDERED: SODIUM CHLORIDE 0.9% 1000ML 1,000 ML ONE (00:56)
[2018-05-06] MEDS ORDERED: SODIUM CHLORIDE 0.9% 50ML 50 ML ONE (01:07)
[2018-05-06] MEDS ORDERED: IOPAMIDOL 370 MG/ML 200 ML INFUS..BTL INJ ONE (01:07)
[2018-05-06 01:34] LABS: LYMPHOCYTES % (MANUAL) 62 % (19-48); MONOCYTES % (MANUAL) 3 % (3.4-9.0); NEUTROPHILS % (MANUAL) 32 % (40-74); PLATELET ESTIMATE ADEQUATE; PLATELET MORPHOLOGY COMMENT NORMAL; RBC MORPHOLOGY COMMENT NORMAL
--- NOTE | 2018-05-06 02:25 | Diagnostic Imaging Report ---
EXAM: CT ABDOMEN/PELVIS W DATE: 05/06/2018 12:51 AM INDICATION: Epigastric pain COMPARISON: 03/31/2018, 01/03/18 TECHNIQUE: The abdomen and pelvis were scanned using a multidetector helical scanner. Coronal and sagittal reformations were obtained. Routine protocol performed. IV Contrast: 100 ml Isovue 300/370 FINDINGS: LOWER THORAX: No consolidations LIVER/BILIARY: No masses. No ductal dilatation. GALLBLADDER: Unremarkable SPLEEN: Unremarkable PANCREAS: Unremarkable ADRENALS: Stable 2.5 cm right adrenal nodule. KIDNEYS: Symmetric perfusion. No enhancing masses. No hydronephrosis. GI TRACT: Postsurgical changes are noted about the GE junction. There is new mild dilation of ileum in unusual location, interpositioned in the anterior right upper quadrant between the liver and diaphragm. This was not seen on any priors. There is also mild dilation of the stomach and large bowel. No evidence of obstruction or bowel wall thickening. Normal appendix. VESSELS: Mild atherosclerotic changes. PERITONEUM/RETROPERITONEUM: No free air or fluid LYMPH NODES: No lymphadenopathy REPRODUCTIVE ORGANS/BLADDER: Unremarkable SOFT TISSUES: Unremarkable BONES: No suspicious bone lesions. 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 Signed by: Dr Chyna Traore MD on 05/06/2018 2:22 AM
[2018-05-06] MEDS ORDERED: MORPHINE SULFATE 2 MG/ML SYR IV STA (02:26)
[2018-05-06] MEDS ORDERED: BENZOCAINE/TETRACAINE/BUTAMBEN AERO SPRAY 56 GM CAN TOP ONE (02:30)
[2018-05-06] MEDS ORDERED: LIDOCAINE VISC 2% SOLN 15 ML UDC ONE (03:25)
[2018-05-06] MEDS: SODIUM CHLORIDE 0.9% 1000ML 1,000 ML IV SCH ×2 (03:37→14:00)
[2018-05-06] MEDS ORDERED: DEXTROSE 50% SYRINGE 50 ML IV PRN (03:45)
[2018-05-06] MEDS: PIPER-TAZ 3.375 GM 50 ML IV SCH ×4 (04:35→18:33)
[2018-05-06] MEDS: INSULIN REGULAR, HUMAN 100 UNIT/1 ML 3ML VIAL SQ SCH ×3 (06:00→18:00)
--- NOTE | 2018-05-06 06:17 | Diagnostic Imaging Report ---
EXAM: US GALLBLADDER DATE: 05/06/2018 12:00 AM INDICATION: Right upper quadrant abdominal pain COMPARISON: None TECHNIQUE: Transverse and longitudinal dumont scale and color doppler sonographic images of the upper abdomen were obtained. FINDINGS: LIVER 16.6 cm in the right midclavicular line. Partially obscured by overlying bowel gas. Normal echogenicity, normal contour, no masses. GALLBLADDER No stones, sludge, wall-thickening or pericholecystic fluid. Negative sonographic Davis's sign. BILE DUCTS No intra nor extra-hepatic biliary dilation. Common bile duct measures 0.3 cm PANCREAS: Not well-visualized due to overlying bowel gas. RIGHT KIDNEY: 11.1 cm Echogenicity: Normal Collecting System: No hydronephrosis Stones: None Cyst/Mass: None VESSELS: Aorta: Not well-visualized due to overlying bowel gas Inferior Vena Cava: Visualized portions are normal Main Portal Vein: 1.2 cm, with hepatopetal flow. FREE FLUID: None IMPRESSION: Normal gallbladder ultrasound. Signed by: Dr Chyna Traore MD on 05/06/2018 6:13 AM
[2018-05-06 06:20] VITALS: BP 156/97
[2018-05-06] MEDS: MORPHINE SULFATE 2 MG/ML SYR IV PRN ×4 (06:41→21:13)
[2018-05-06 07:15] VITALS: BP 132/71
[2018-05-06 08:04] VITALS: BP 132/71
[2018-05-06 08:58] LABS: CREATINE KINASE 57 IU/L (29-168)
[2018-05-06] MEDS: PANTOPRAZOLE 40 MG 10ML VIAL IV SCH ×2 (09:22→17:08)
[2018-05-06 10:30] LABS: % IRON SATURATION 22 % (15-50); IRON 93 ug/dL (50-170); TOTAL IRON BINDING CAPACITY 427 ug/dL (261-478); TRANSFERRIN 305 mg/dL (180-382)
--- NOTE | 2018-05-06 10:51 | History and Physical ---
CLINICAL HISTORY: This is a 57-year-old woman with history of pancreatitis admitted via the emergency room because of incarcerated small bowel in front of the liver. The patient is being admitted for possible surgery and surgical consultation. This patient was asymptomatic until several hours prior to admission when she noticed right upper quadrant pain. She came to the emergency room. CT scan showed the above findings. Ultrasound of the gallbladder was negative. PAST MEDICAL HISTORY: Remarkable for recurrent pancreatitis. Severe hypertriglyceridemia with triglycerides over 3000 in the past. The patient is on fenofibrate. There is history of iron deficiency anemia and guaiac-positive stool. Followed by Dr. Elias Lacy. There is history of poorly controlled diabetes requiring further adjustment of insulin. There is history of a right adrenal mass which appears to be benign, lipomatous. PAST SURGERIES: Include tubal ligation, herniorrhaphy (hiatal hernia), fundoplication, bilateral carpal tunnel surgery, right breast biopsy. REVIEW OF SYSTEMS: Remarkable for chronic headaches. FAMILY HISTORY: Noncontributory. PERSONAL AND SOCIAL HISTORY: She has a lot of stress with 2 nephews committing suicide in the past 2 years. Sister is severely ill with congestive heart failure hospitalization. REVIEW OF SYSTEMS: Noncontributory. PHYSICAL EXAMINATION: She is alert, coherent, nauseated but is not vomiting. VITAL SIGNS: Stable. CARDIAC: Jugular veins are not distended. S1, S2 are regular. There is no appreciable murmur. ABDOMEN: Soft. There is right upper quadrant tenderness. There is no rebound or guarding. EXTREMITIES: No cyanosis, clubbing or edema. LABORATORY STUDIES: The white count is 8600. Hemoglobin 12.6. Platelet count is 337,000. Urinalysis shows 1+ glucose, 11-20 WBCs, a few bacteria. Electrolytes are normal. BUN is 26. Glucose 207. Amylase and lipase are normal. Total protein is 8.7. CT scan and ultrasound are as mentioned. IMPRESSION 1. Acceptable risk from a cardiac standpoint for the planned possible abdominal surgery. 2. Incarcerated small bowel in front of the liver with right upper quadrant pain. 3. History of severe pancreatitis due to hypertriglyceridemia. 4. History of severe hypertriglyceridemia, greater than 3000. 5. History of poorly controlled diabetes. 6. Possible urinary tract infection. 7. History of stable right adrenal mass. 8. History of guaiac-positive stool followed by Dr. Elias Lacy. 9. History of iron deficiency anemia. 10. Multiple noncardiac surgeries as mentioned above. 11. Hospitalization last year for viral gastroenteritis. RECOMMENDATIONS: Surgical consultation. NG tube and n.p.o. for now. Control diabetes. Check iron level. Job#: [id number] cc:MD KATHY GLORIA MD
[2018-05-06 11:37] VITALS: BP 137/77
[2018-05-06] MEDS: ONDANSETRON HCL INJ 2 MG/ML VIAL IV PRN (15:30)
[2018-05-06 16:22] VITALS: BP 167/77
[2018-05-06 16:30] LABS: CREATINE KINASE 51 IU/L (29-168)
[2018-05-06] MEDS ORDERED: FERROUS SULFATE 325 MG TAB PO SCH (17:00)
[2018-05-06 20:00] VITALS: BP 143/75
[2018-05-07] VITALS (8 sets, daily range): BP systolic 137–170; BP diastolic 65–85
[2018-05-07] MEDS: SODIUM CHLORIDE 0.9% 1000ML 1,000 ML IV SCH ×3 (00:02→21:56)
[2018-05-07] MEDS: PIPER-TAZ 3.375 GM 50 ML IV SCH ×4 (00:02→18:08)
[2018-05-07] MEDS: INSULIN REGULAR, HUMAN 100 UNIT/1 ML 3ML VIAL SQ SCH ×4 (06:00→18:00)
[2018-05-07 06:22] LABS: BASOPHILS % 0.3 % (0.0-1.0); EOSINOPHILS # (AUTO) 0.1 (0.0-0.4); EOSINOPHILS % 0.7 % (0.0-6.0); HEMATOCRIT 32.5 % (34.2-44.1); HEMOGLOBIN 11.5 g/dL (12.0-16.0); LYMPHOCYTES # (AUTO) 2.3 (1.0-3.2); LYMPHOCYTES % 31.5 % (18.0-39.1); MEAN CORPUSCULAR HEMOGLOBIN 30.2 pg (28-32); MEAN CORPUSCULAR HGB CONC 35.4 g/dL (31-35); MEAN CORPUSCULAR VOLUME 85.3 fL (81-99); MONOCYTES # (AUTO) 0.4 (0.2-0.8); MONOCYTES % 5.4 % (4.4-11.3); NEUTROPHILS # (AUTO) 4.5 (2.1-6.9); NEUTROPHILS % 61.8 % (38.7-80.0); PLATELET COUNT 284 x10e3/uL (140-360); RED BLOOD COUNT 3.81 x10e6/uL (3.6-5.1); RED CELL DISTRIBUTION WIDTH 12.1 % (11.7-14.4)
[2018-05-07 06:48] LABS: ALANINE AMINOTRANSFERASE 14 IU/L (0-55); ALBUMIN 3.6 g/dL (3.5-5.0); ALBUMIN/GLOBULIN RATIO 0.9 (0.8-2.0); ALKALINE PHOSPHATASE 63 IU/L (40-150); AMYLASE 78 U/L (25-125); ANION GAP 10.6 mmol/L (8-16); BLOOD UREA NITROGEN 8 mg/dL (7-26); BUN/CREATININE RATIO 12 (6-25); CARBON DIOXIDE 23 mmol/L (22-29); CHLORIDE 106 mmol/L (98-107); CREATININE, SERUM 0.68 mg/dL (0.57-1.11); EST GLOMERULAR FILTRATION RATE > 60 ML/MIN (60-); GLUCOSE 179 mg/dL (74-118); LIPASE 22 U/L (8-78); POTASSIUM 3.6 mmol/L (3.5-5.1); SODIUM 136 mmol/L (136-145)
--- NOTE | 2018-05-07 06:58 | Diagnostic Imaging Report ---
ABDOMEN ACUTE SERIES W/PA CXR Clinical history: Small bowel obstruction Technique: AP views of the abdomen, PA view of the chest Comparison: Previous CT Findings: See impression Impression: 1. NG tube is looped, possibly kinked, within the stomach with tip oriented retrograde. 3. Nonobstructive bowel gas pattern. Previously seen dilated loops of small bowel in the right upper quadrant are no longer visualized. 4. No free air. 5. Mild bibasilar atelectasis. Otherwise unremarkable chest. Signed by: Dr Chyna Traore MD on 05/07/2018 6:54 AM
[2018-05-07] MEDS: FENOFIBRATE 145 MG TAB PO SCH (09:00)
[2018-05-07] MEDS ORDERED: INSULIN DETEMIR 17 UNIT SC SCH (09:00)
[2018-05-07] MEDS: ENALAPRIL MALEATE 5 MG TAB PO SCH (09:00)
[2018-05-07] MEDS: PANTOPRAZOLE 40 MG 10ML VIAL IV SCH ×2 (09:27→17:31)
[2018-05-07] MEDS: INSULIN DETEMIR 100 UNIT/ML PEN SQ SCH (09:28)
[2018-05-07] MEDS ORDERED: KETOROLAC TROMETHAMINE 60 MG/2 ML VIAL IM ONE (09:30)
[2018-05-08] VITALS: BP 127/71
[2018-05-08 04:00] VITALS: BP 139/70
[2018-05-08] MEDS: PIPER-TAZ 3.375 GM 50 ML IV SCH ×5 (05:35→23:18)
[2018-05-08] MEDS: SODIUM CHLORIDE 0.9% 1000ML 1,000 ML IV SCH ×2 (05:36→19:37)
[2018-05-08] MEDS: INSULIN REGULAR, HUMAN 100 UNIT/1 ML 3ML VIAL SQ SCH ×5 (05:49→20:57)
[2018-05-08 08:15] VITALS: BP 119/74
[2018-05-08] MEDS: ONDANSETRON HCL INJ 2 MG/ML VIAL IV PRN ×2 (08:35→17:45)
[2018-05-08] MEDS: MORPHINE SULFATE 2 MG/ML SYR IV PRN ×2 (08:35→17:45)
[2018-05-08] MEDS: INSULIN DETEMIR 100 UNIT/ML PEN SQ SCH (09:00)
[2018-05-08] MEDS: FENOFIBRATE 145 MG TAB PO SCH (09:00)
[2018-05-08] MEDS: PANTOPRAZOLE 40 MG 10ML VIAL IV SCH ×2 (09:00→17:00)
[2018-05-08] MEDS: ENALAPRIL MALEATE 5 MG TAB PO SCH (09:00)
[2018-05-08 12:00] VITALS: BP 131/85
[2018-05-08] MEDS ORDERED: KETOROLAC TROMETHAMINE 30 MG/ML VIAL IM PRN (12:00)
[2018-05-08 16:14] VITALS: BP 137/76
[2018-05-08] MEDS: ACETAMINOPHEN 325 MG TAB PO PRN (16:47)
[2018-05-08 20:00] VITALS: BP 142/69
[2018-05-09] VITALS: BP 125/62
[2018-05-09] MEDS: SODIUM CHLORIDE 0.9% 1000ML 1,000 ML IV SCH ×2 (02:45→11:37)
[2018-05-09 04:00] VITALS: BP 127/72
[2018-05-09] MEDS: PIPER-TAZ 3.375 GM 50 ML IV SCH ×2 (05:13→13:30)
[2018-05-09 07:30] VITALS: BP 127/72
[2018-05-09] MEDS: INSULIN REGULAR, HUMAN 100 UNIT/1 ML 3ML VIAL SQ SCH ×2 (07:30→11:30)
[2018-05-09 08:00] VITALS: BP 121/77
[2018-05-09] MEDS: ACETAMINOPHEN 325 MG TAB PO PRN (08:30)
[2018-05-09] MEDS: ENALAPRIL MALEATE 5 MG TAB PO SCH (08:45)
[2018-05-09] MEDS: FENOFIBRATE 145 MG TAB PO SCH (08:45)
[2018-05-09] MEDS: PANTOPRAZOLE 40 MG 10ML VIAL IV SCH (08:45)
[2018-05-09] MEDS: INSULIN DETEMIR 100 UNIT/ML PEN SQ SCH (09:00)
[2018-05-09 11:54] VITALS: BP 137/80
[2018-05-09 15:47] VITALS: BP 139/75
--- NOTE | 2018-05-10 01:53 | Discharge Summary ---
CLINICAL HISTORY: This is a 57-year-old woman admitted via the emergency room because of possible incarcerated bowel with the bowel found in front of the liver based on CT scan. Please refer to my previous dictation concerning the details of current illness, past medical history, personal and social history, family history, review of systems, physical examination, initial laboratory studies. HOSPITAL COURSE: The patient had severe abdominal pains for several days, was unable to eat, had NG tube, persistently nauseated and vomiting. Also complained bitterly of headaches, which she has had chronically. She cannot take morphine, wanted something stronger, however, we gave her Toradol and Tylenol, her symptoms resolved. NG tube was removed. She did not require surgery, was consulted with Dr. Raul Saez, no surgical indications. She started eating solids without difficulty. Had no more headaches. We did not check the triglyceride this time, in March it was normal. In the past, she has had very high triglyceride and had pancreatitis, but this time amylase and lipase were normal. Diabetes remained under control. She is discharged on her previous medications including enalapril 5 mg p.o. every day, fenofibrate 145 mg p.o. every day, iron sulfate 325 mg every day, and Levemir 35 units nightly. She was given activity, diet, medication, followup instructions. Will see Dr. Dominick Steele in 1 week. DISCHARGE DIAGNOSES: 1. 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 2. History of recurrent pancreatitis due to hypertriglyceridemia, but this time the amylase and lipase were normal. 3. History of severe hypertriglyceridemia greater than 3000, but in March her triglyceride was under control, in a normal range. 4. History of poorly controlled diabetes. 5. History of urinary tract infection. 6. History of stable right adrenal mass. 7. History of guaiac-positive stool, followed by Dr. Elias Lacy. 8. History of iron deficiency. 9. Chronic headaches with the patient refusing to take morphine because it was causing her headache to be worse, but resolved with tramadol and Tylenol. DAVID MONTOYA MD Job#: [id number] cc:MD DOMINICK KAY MD
== END 2018-05-09 16:33 | disposition home or self-care (01) | DRG 690 ==
LOC: ER 22:31 → ERHOLD 05-06 03:50 → MED/SURG3 05-06 05:34
PROVIDERS: ADMIT Internal Medicine Cardiovascular Disease; ATTEND Internal Medicine Cardiovascular Disease
DX: N39.0 Urinary tract infection, site not specified (principal); Q43.3 Congenital malformations of intestinal fixation; E11.9 Type 2 diabetes mellitus without complications; G44.89 Other headache syndrome; D50.9 Iron deficiency anemia, unspecified; E27.9 Disorder of adrenal gland, unspecified; Z79.899 Other long term (current) drug therapy; Z79.84 Long term (current) use of oral hypoglycemic drugs
CPT/HCPCS: 36415; 74022; 74177; 76705; 80053; 81001; 82150; 82550; 82553; 82948; 83540; 83690; 83735; 84466; 84484; 85025; 93005; 96367; 99284; J1885; J2270; J2405; J2543; J7030; Q9967

== ENCOUNTER 2018-11-14 17:06 | Inpatient (IN) | payer OTHER ==
[~2018-11-14] VITALS: Ht 144.8 cm; Wt 72.6 kg
[2018-11-14] MEDS ORDERED: SODIUM CHLORIDE 0.9% 1000ML 1,000 ML IV STA (17:16)
[2018-11-14] MEDS ORDERED: FENTANYL CITRATE/PF 100MCG/2 ML INJ IV NR (17:30)
[2018-11-14] MEDS ORDERED: ONDANSETRON HCL INJ 2 MG/ML VIAL IV ONE (17:45)
[2018-11-14 17:46] LABS: CLARITY,URINE SL CLOUDY (CLEAR); COLOR,URINE YELLOW (YELLOW); LEUKOCYTE ESTERASE ,URINE NEGATIVE (NEGATIVE); NITRITE,URINE NEGATIVE (NEGATIVE); PROTEIN,URINE DIPSTICK 1+ (NEGATIVE)
[2018-11-14 17:47] LABS: BILIRUBIN,URINE NEGATIVE (NEGATIVE); KETONES,URINE TRACE (NEGATIVE); URINE UROBILINOGEN 0.2 mg/dL (0.2 - 1); WBC,URINE (MAN) 0-5 /HPF (0-5)
[2018-11-14 17:49] LABS: BACTERIA,URINE FEW /HPF; EPITHELIAL CELLS,URINE FEW /LPF
[2018-11-14 18:00] LABS: BASOPHILS % 0.2 % (0.0-1.0); EOSINOPHILS # (AUTO) 0.1 (0.0-0.4); EOSINOPHILS % 0.7 % (0.0-6.0); HEMATOCRIT 36.7 % (34.2-44.1); HEMOGLOBIN 13.2 g/dL (12.0-16.0); LYMPHOCYTES # (AUTO) 2.8 (1.0-3.2); LYMPHOCYTES % 22.5 % (18.0-39.1); MEAN CORPUSCULAR HEMOGLOBIN 30.6 pg (28-32); MEAN CORPUSCULAR VOLUME 85.2 fL (81-99); MONOCYTES # (AUTO) 0.4 (0.2-0.8); MONOCYTES % 3.4 % (4.4-11.3); NEUTROPHILS # (AUTO) 9.1 (2.1-6.9); NEUTROPHILS % 72.8 % (38.7-80.0); PLATELET COUNT 194 x10e3/uL (140-360); RED BLOOD COUNT 4.31 x10e6/uL (3.6-5.1); RED CELL DISTRIBUTION WIDTH 12.3 % (11.7-14.4)
[2018-11-14 18:04] LABS: INR 0.77; PROTHROMBIN TIME 11.5 seconds (11.9-14.5)
[2018-11-14 18:05] LABS: PARTIAL THROMBOPLASTIN TIME 20.3 seconds (23.8-35.5)
[2018-11-14 18:14] LABS: ALANINE AMINOTRANSFERASE 14 IU/L (0-55); ALBUMIN 4.1 g/dL (3.5-5.0); ALBUMIN/GLOBULIN RATIO 0.8 (0.8-2.0); ALKALINE PHOSPHATASE 106 IU/L (40-150); AMYLASE 208 U/L (25-125); ANION GAP 24.1 mmol/L (8-16); BLOOD UREA NITROGEN 16 mg/dL (7-26); BUN/CREATININE RATIO 20 (6-25); CALCIUM 9.3 mg/dL (8.4-10.2); CARBON DIOXIDE 12 mmol/L (22-29); CHLORIDE 97 mmol/L (98-107); CREATININE, SERUM 0.81 mg/dL (0.57-1.11); EST GLOMERULAR FILTRATION RATE > 60 ML/MIN (60-); GLUCOSE 246 mg/dL (74-118); LIPASE 355 U/L (8-78); MAGNESIUM 2.6 MG/DL (1.3-2.1); POTASSIUM 4.1 mmol/L (3.5-5.1); SODIUM 129 mmol/L (136-145)
--- NOTE | 2018-11-14 18:49 | NUR ---
REPORT GIVEN TO FORTINO CREWS FELT CHECKER NURSE.
[2018-11-14 19:18] LABS: LYMPHOCYTES % (MANUAL) 18 % (19-48); MONOCYTES % (MANUAL) 2 % (3.4-9.0); NEUTROPHILS % (MANUAL) 80 % (40-74); PLATELET ESTIMATE ADEQUATE; PLATELET MORPHOLOGY COMMENT NORMAL; RBC MORPHOLOGY COMMENT NORMAL
[2018-11-14 19:19] LABS: PLATELET CLUMPS FEW
[2018-11-14] MEDS: SODIUM CHLORIDE 0.9% 1000ML 1,000 ML IV SCH (19:27)
[2018-11-14] MEDS ORDERED: HYDROMORPHONE 2MG/ML 2 MG/ML ML IV ONE (19:30)
--- NOTE | 2018-11-14 19:40 | Diagnostic Imaging Report ---
EXAM: CT ABDOMEN AND PELVIS with IV CONTRAST DATE: 11/14/2018 5:16 PM Time stamp on Exam: 1916 hours INDICATION: Epigastric pain COMPARISON: CT of the abdomen and pelvis May 06, 2018 TECHNIQUE: The abdomen and pelvis were scanned using a multidetector helical scanner. Coronal and sagittal reformations were obtained. Dose modulation, iterative reconstruction, and/or weight based adjustment of the mA/kV was utilized to reduce the radiation dose to as low as reasonably achievable. Routine protocol performed. IV Contrast: 100 cc Isovue-370 Oral Contrast: Water FINDINGS: LOWER THORAX: No consolidations LIVER: No masses BILIARY: The gallbladder is unremarkable. No ductal dilation. SPLEEN: No masses PANCREAS: Mild stranding around the pancreatic head and duodenum ADRENALS: Stable 2.5 cm right adrenal gland nodule. KIDNEYS: Symmetric perfusion. No enhancing masses. No hydronephrosis. GI TRACT: No distention, wall thickening or evidence of obstruction. Stranding around the third portion of the duodenum. Normal appendix. Surgical clips at the gastroesophageal junction. VESSELS: Normal PERITONEUM/RETROPERITONEUM: No free air or fluid LYMPH NODES: No lymphadenopathy REPRODUCTIVE ORGANS: Unremarkable BLADDER: Unremarkable SOFT TISSUES: Unremarkable BONES: No suspicious bone lesions. IMPRESSION: Inflammatory changes around the pancreatic head and third portion of the duodenum. The differential includes pancreatitis or duodenitis. No abnormal fluid collections. No free air or abscess formation. Signed by: Dr. Enedina Berry M.D. on 11/14/2018 7:36 PM
[2018-11-14] MEDS ORDERED: DEXTROSE 50% SYRINGE 50 ML IV PRN (19:45)
[2018-11-14] MEDS ORDERED: ONDANSETRON HCL INJ 2 MG/ML VIAL IV PRN (19:45)
[2018-11-14 20:00] VITALS: BP 124/67
[2018-11-14] MEDS ORDERED: HYDROMORPHONE 2MG/ML 2 MG/ML ML IV PRN (20:00)
[2018-11-14] MEDS ORDERED: METFORMIN HCL500 MG PO (20:35)
[2018-11-14] MEDS ORDERED: ATORVASTATIN CA20 MG PO (20:35)
[2018-11-14] MEDS: INSULIN REGULAR, HUMAN 100 UNIT/1 ML 3ML VIAL SQ SCH (21:00)
[2018-11-14] MEDS: PIPER-TAZ 3.375 GM 50 ML IV SCH (22:23)
[2018-11-14 22:35] VITALS: BP 128/78
[2018-11-15] VITALS (8 sets, daily range): BP systolic 103–152; BP diastolic 62–82
[2018-11-15] MEDS: SODIUM CHLORIDE 0.9% 1000ML 1,000 ML IV SCH ×2 (00:27→05:27)
[2018-11-15] MEDS ORDERED: MELATONIN3 MG PO (00:30)
--- NOTE | 2018-11-15 02:37 | NUR ---
DR Kaitlin HEAD IN UNIT ROUNDING ON PT AT THIS TIME.
[2018-11-15] MEDS: PIPER-TAZ 3.375 GM 50 ML IV SCH (05:30)
[2018-11-15 05:51] LABS: BASOPHILS % 0.4 % (0.0-1.0); EOSINOPHILS % 0.4 % (0.0-6.0); HEMATOCRIT 34.4 % (34.2-44.1); HEMOGLOBIN 11.3 g/dL (12.0-16.0); LYMPHOCYTES # (AUTO) 2.1 (1.0-3.2); LYMPHOCYTES % 28.8 % (18.0-39.1); MEAN CORPUSCULAR HEMOGLOBIN 30.2 pg (28-32); MEAN CORPUSCULAR HGB CONC 32.8 g/dL (31-35); MONOCYTES # (AUTO) 0.3 (0.2-0.8); NEUTROPHILS # (AUTO) 4.8 (2.1-6.9); NEUTROPHILS % 66.3 % (38.7-80.0); PLATELET COUNT 218 x10e3/uL (140-360); RED BLOOD COUNT 3.74 x10e6/uL (3.6-5.1); RED CELL DISTRIBUTION WIDTH 12.9 % (11.7-14.4)
[2018-11-15 06:17] LABS: ALANINE AMINOTRANSFERASE 13 IU/L (0-55); ALBUMIN 3.2 g/dL (3.5-5.0); ALBUMIN/GLOBULIN RATIO 0.8 (0.8-2.0); ALKALINE PHOSPHATASE 81 IU/L (40-150); AMYLASE 82 U/L (25-125); ANION GAP 16.9 mmol/L (8-16); BLOOD UREA NITROGEN 11 mg/dL (7-26); BUN/CREATININE RATIO 17 (6-25); CALCIUM 8.3 mg/dL (8.4-10.2); CARBON DIOXIDE 13 mmol/L (22-29); CHLORIDE 105 mmol/L (98-107); CHOL/HDL RATIO 8.5 (3.0-3.6); CHOLESTEROL 281 MD/DL (0-199); CREATININE, SERUM 0.65 mg/dL (0.57-1.11); EST GLOMERULAR FILTRATION RATE > 60 ML/MIN (60-); GLUCOSE 202 mg/dL (74-118); HDL CHOLESTEROL 33 MG/DL (40-60); LIPASE 83 U/L (8-78); POTASSIUM 3.9 mmol/L (3.5-5.1); SODIUM 131 mmol/L (136-145); TRIGLYCERIDES 971 MG/DL (0-149)
--- NOTE | 2018-11-15 06:25 | NUR ---
CALL PLACED TO DR VALDEZ AND REPORTED THAT PT IS C/O DIFFICULTY BREATHING,REPORTED PT V/S.AND SPO2 LEVEL OF 98% ON ROOM AIR.N/O'S RECEIVED AND ENTERED.
[2018-11-15] MEDS ORDERED: FUROSEMIDE INJ 10 MG/ML 4 ML VIAL IV ONE (06:30)
--- NOTE | 2018-11-15 06:51 | NUR ---
CALL PLACED TO RADIOLOGY SPOKE WITH ARLIN NOTIFIED THAT STAT CHEST XRAY WAS ORDERED FOR THE PT,VERBALIZED UNDERSTANDING.
--- NOTE | 2018-11-15 07:12 | NUR ---
REPORT GIVEN TO ONCOMING NURSE,WALKING ROUNDS MADE.PT RESTING IN BED WITH NO S/S OF ACUTE DISTRESS.
--- NOTE | 2018-11-15 07:25 | NUR ---
PT IN BED AWAKE,DENIES PAIN.
[2018-11-15] MEDS: INSULIN REGULAR, HUMAN 100 UNIT/1 ML 3ML VIAL SQ SCH ×4 (08:02→20:46)
--- NOTE | 2018-11-15 08:25 | Diagnostic Imaging Report ---
EXAMINATION: CHEST SINGLE (PORTABLE) COMPARISON: Chest x-ray 05/07/2018 INDICATION: Shortness of breath DISCUSSION: Frontal view of the chest obtained at 0801 hours. HEART AND MEDIASTINUM: The cardiomediastinal silhouette is unremarkable. LINES: None. LUNGS: The lungs are well inflated and clear. No pneumonia or pulmonary edema. PLEURA: No pleural effusion or pneumothorax. BONES AND SOFT TISSUES: No focal osseous lesion. The soft tissues are normal. IMPRESSION: No acute cardiopulmonary disease. Signed by: Dr. Radhames Ortiz MD on 11/15/2018 8:21 AM
--- NOTE | 2018-11-15 08:45 | NUR ---
DR VALDEZ HERE,ORDERS WRITTEN/
[2018-11-15] MEDS: PANTOPRAZOLE 40 MG 10ML VIAL IV SCH (09:00)
[2018-11-15] MEDS ORDERED: SODIUM CHLORIDE 0.9% 50ML 50 ML ONE (09:20)
[2018-11-15] MEDS ORDERED: IOPAMIDOL 370 MG/ML 200 ML INFUS..BTL INJ ONE (09:20)
[2018-11-15] MEDS ORDERED: HYDROCODONE/APAP 5MG-325MG TAB PO PRN (09:30)
[2018-11-15] MEDS ORDERED: MELATONIN 3 MG TAB PO PRN (09:30)
--- NOTE | 2018-11-15 11:54 | History and Physical ---
CHIEF COMPLAINT: Abdominal pain, chronic pancreatitis. HPI: This is a 58-year-old female morbidly obese with known uncontrolled type 2 diabetes and chronic pancreatitis in the past, comes into the ED with complaints of abdominal pain, found to have elevated lipase level. She reports over the last several days she has had this epigastric abdominal pain with associated nausea and vomiting with decreased oral intake. She has been here several times with similar findings. She is very noncompliant with her insulin as well as with her triglycerides medications. She endorses that on evaluation. She denies any diarrhea, chest pain, or palpitations. Patient was seen and evaluated at bedside on the medical floor, currently doing well with no other issues. This morning, she was short of breath in which IV fluids were held and given Lasix. REVIEW OF SYSTEMS PERTINENT POSITIVE: Shortness of breath, abdominal pain epigastrically, nausea, vomiting decreased oral intake. PERTINENT NEGATIVE: Denies any chest pain, palpitations, dysuria, hematuria, frequency, urgency, lightheadedness, dizziness, headache, cough, congestion, fever, or any other complaints. The rest of 14-point review of systems have been reviewed with the patient and are negative. ALLERGIES: NO KNOWN DRUG ALLERGIES. HOME MEDICATIONS: Patient takes Lipitor 40 mg daily, enalapril 10 mg daily, fenofibrate 145 mg daily, iron supplement 325 mg daily, Levemir 35 units subcutaneous daily, melatonin 3 mg at bedtime p.r.n. for sleep, also takes metformin 500 mg p.o. t.i.d. PAST MEDICAL HISTORY: Type 2 diabetes, hyperlipidemia, hypertension, uncontrolled diabetes, morbid obesity, chronic pancreatitis. SURGICAL HISTORY: None. FAMILY HISTORY: Hypertension and diabetes. SOCIAL HISTORY: No drugs. No alcohol. Does not smoke. Good social support. She is . VITAL SIGNS: Temperature is 97.2, pulse 76, respiratory rate is 20, blood pressure 120/74 pulse ox 100% on room air. LABORATORY DATA: Lab findings show white count 7.2, hemoglobin 11.3, hematocrit 34, platelets of 218. Coagulation; PT 11.5, INR 0.77, PTT 20.3. Chemistry; sodium 131, potassium 3.9, chloride 105, bicarb is 13, anion gap of 16, BUN is 11, creatinine is 0.65, glucose is 202, calcium is 8.3, lactic acid 17 but normal at this facility. Magnesium 2.6. LFTs were normal. Albumin 3.2, triglycerides was 971, cholesterol was 281. LDL was unmeasurable. Lipase level on admission 355, now 83; amylase 208, now 82. Urinalysis was found to be negative. MICROBIOLOGY: None. IMAGING STUDIES: CT abdomen and pelvis showed inflammatory changes around the pancreatic head and third portion of the duodenum concerning for underlying pancreatitis. No free air or abscess formation seen. Chest x-ray was negative. PHYSICAL EXAM GENERAL: Not in acute distress, alert and oriented x3, cooperative on examination. HEENT: Head: Normocephalic, atraumatic. Eyes: Pupils are equal and reactive to light bilaterally. Extraocular movements are intact bilaterally. NECK: Supple. Good range of motion. THROAT: No evidence of any erythema or exudates in the posterior pharynx. Has poor dentition. PULMONARY: Clear to auscultation bilaterally. No wheezing, no rales or rhonchi, no crackles appreciated. CARDIOVASCULAR: Positive S1 and S2. No murmurs, rubs, or gallops appreciated. ABDOMEN: Tender to palpation in epigastric region. No rebound. No guarding. Bowel sounds present. MUSCULOSKELETAL: Strength is 5/5 throughout. No evidence of any musculoskeletal deficits on examination. No weakness appreciated. NEUROLOGIC: Cranial nerves II through XII grossly intact. No evidence of any neurologic deficit on exam. SKIN: Intact. Warm to touch. Good cap refill. PSYCHIATRIC: Normal affect and mood. EXTREMITIES: No edema. Good range of motion throughout. IMPRESSION 1. Crpqm-ga-idwkygp pancreatitis due to uncontrolled type 2 diabetes and hyperlipidemia. 2. Uncontrolled type 2 diabetes. 3. Hyperlipidemia. 4. Morbid obesity. 5. Medical noncompliance. 6. [place] metabolic acidosis. PLAN: At this time, she was n.p.o. last night. She is currently hungry. We will start her on clear liquid diet for now. Lipase levels are much improved. She developed shortness of breath this morning in which IV fluids were stopped and chest x-ray was performed. Lasix was given 40 mg IV x1. She is currently breathing much better. GI was consulted. We are going to resume all her home medications. We are also going to restart the Levemir, hold the metformin, and start her on a sliding scale. Get a hemoglobin A1c for the morning. Put on sodium bicarbonate tabs 1300 mg p.o. b.i.d. Encourage ambulation. Put on Lovenox for DVT prophylaxis. Will monitor her overnight and see how she does tomorrow. I had a long discussion with her about being very compliant with her medications and she endorses that she is very noncompliant and she says that she work on trying to be more compliant at this time. Job#: [id number] TEMO
--- NOTE | 2018-11-15 12:30 | NUR ---
CLEAR LIQUID STARTED ,TOLERATED WELL.NO C/O NAUSEA
[2018-11-15] MEDS: FENOFIBRATE 145 MG TAB PO SCH (12:35)
[2018-11-15] MEDS: INSULIN DETEMIR 100 UNIT/ML PEN SQ SCH (14:00)
[2018-11-15] MEDS: ENALAPRIL MALEATE 10 MG TAB PO SCH (14:45)
[2018-11-15] MEDS: FERROUS SULFATE 325 MG TAB PO SCH (17:00)
[2018-11-15] MEDS: SODIUM BICARBONATE 650 MG TAB PO SCH (18:08)
[2018-11-15] MEDS: ENOXAPARIN SOD INJ 40 MG/0.4 ML SYR SC SCH (18:08)
--- NOTE | 2018-11-15 18:13 | NUR ---
PT UP IN BED DENIES PAIN,TOLERATED PO WELL
[2018-11-15] MEDS: ATORVASTATIN 20 MG TAB PO SCH (20:44)
[2018-11-16] VITALS (9 sets, daily range): BP systolic 90–113; BP diastolic 53–76
[2018-11-16 05:50] LABS: BASOPHILS % 0.4 % (0.0-1.0); EOSINOPHILS # (AUTO) 0.2 (0.0-0.4); EOSINOPHILS % 1.8 % (0.0-6.0); HEMATOCRIT 33.4 % (34.2-44.1); HEMOGLOBIN 11.5 g/dL (12.0-16.0); LYMPHOCYTES # (AUTO) 4.8 (1.0-3.2); LYMPHOCYTES % 56.8 % (18.0-39.1); MEAN CORPUSCULAR HEMOGLOBIN 29.9 pg (28-32); MEAN CORPUSCULAR HGB CONC 34.4 g/dL (31-35); MONOCYTES # (AUTO) 0.5 (0.2-0.8); MONOCYTES % 5.8 % (4.4-11.3); PLATELET COUNT 257 x10e3/uL (140-360); RED BLOOD COUNT 3.84 x10e6/uL (3.6-5.1)
[2018-11-16 06:08] LABS: ANION GAP 12.3 mmol/L (8-16); BLOOD UREA NITROGEN 15 mg/dL (7-26); BUN/CREATININE RATIO 21 (6-25); CARBON DIOXIDE 23 mmol/L (22-29); CHLORIDE 101 mmol/L (98-107); CREATININE, SERUM 0.71 mg/dL (0.57-1.11); EST GLOMERULAR FILTRATION RATE > 60 ML/MIN (60-); GLUCOSE 126 mg/dL (74-118); POTASSIUM 3.3 mmol/L (3.5-5.1); SODIUM 133 mmol/L (136-145)
--- NOTE | 2018-11-16 07:10 | NUR ---
received pt lying in bed with eyes closed, Resp even and unlabored. call light within reach. spouse at bedside.
[2018-11-16] MEDS: INSULIN REGULAR, HUMAN 100 UNIT/1 ML 3ML VIAL SQ SCH ×4 (08:52→21:52)
[2018-11-16] MEDS: FENOFIBRATE 145 MG TAB PO SCH (08:57)
[2018-11-16] MEDS: PANTOPRAZOLE 40 MG 10ML VIAL IV SCH (08:57)
[2018-11-16] MEDS: SODIUM BICARBONATE 650 MG TAB PO SCH ×2 (08:57→16:43)
[2018-11-16] MEDS: ENALAPRIL MALEATE 10 MG TAB PO SCH (08:57)
[2018-11-16] MEDS ORDERED: POTASSIUM CHLORIDE 20 MEQ TAB CR PO STA (08:58)
[2018-11-16] MEDS: INSULIN DETEMIR 100 UNIT/ML PEN SQ SCH (09:00)
--- NOTE | 2018-11-16 10:22 | Progress Note ---
DATE: November 16, 2018 MEDICINE PROGRESS NOTE SUBJECTIVE: Patient still complains of some epigastric abdominal pain. She does not like the clear liquid diet, which we will go ahead and advance to full liquids. She seems to be very noncompliant. It seems like she has eaten some fried chicken last night, but she denies it. PHYSICAL EXAMINATION VITAL SIGNS: Temperature is 97.2, pulse 68, respiratory rate 19, blood pressure 97/53, pulse ox 96% on room air. GENERAL: Not in acute distress. Alert and oriented times 3. Cooperative on examination. HEENT: Head is normocephalic and atraumatic. Eyes: Pupils equal, round and reactive to light bilaterally. Extraocular movements intact bilaterally. NECK: Supple. Good range of motion. Throat with no evidence of any erythema or exudates in the posterior pharynx. Has poor dentition. PULMONARY: Clear to auscultation bilaterally. No wheezing. No rales. No rhonchi. No crackles appreciated. CARDIOVASCULAR: Positive S1 and S2. No murmurs, rubs or gallops appreciated. ABDOMEN: Soft, nondistended and nontender to palpation. Bowel sounds present. MUSCULOSKELETAL: Strength is 5/5 throughout. No evidence of any muscle deficit on examination. No weakness appreciated. NEUROLOGICAL: Cranial nerves II-XII are grossly intact. No evidence of any neurological deficits on exam. SKIN: Intact. Warm to touch. Good cap refill. PSYCHIATRIC: Normal affect and mood. EXTREMITIES: No edema. Good range of motion throughout. White count 8.4, hemoglobin 11.5, hematocrit 33, and platelets of 257,000. Coagulation: PT 11, INR 0.77 and PTT 20. Chemistry: Sodium 133, potassium 3.3, chloride 101, bicarb 23, anion gap 12, BUN 15, creatinine 0.71, glucose 126. Calcium is 9. MICROBIOLOGY: None. IMAGING STUDIES: None. IMPRESSION 1. Axati-xq-ghjrbsn pancreatitis due to uncontrolled type 2 diabetes and hyperlipidemia. 2. Uncontrolled type 2 diabetes. 3. Hyperlipidemia. 4. Morbid obesity. 5. Medical noncompliance. 6. Non-anion gap metabolic acidosis. PLAN: At this time, will advance diet to full liquid as she refuses to eat clear liquid diet given normal saline bolus due to the hypotension. Replace potassium. Continue with saline bicarbonate tabs. Get a.m. labs. She is on Lovenox for DVT prophylaxis. Otherwise, will continue same plan of care. Continue with the same insulin regimen. If she improves tomorrow and is tolerating diet well, we may be able to discharge her home. Job#: [id number] RI
--- NOTE | 2018-11-16 14:53 | NUR ---
Gas Engineer to bedside to discuss plan of care with patient/family. CM/SW role and care transitions discussed. Anticipated discharge plan discussed along with duration of care. CM/SW discussed patients right to make decisions in care. CM/SW work hours given. Patient lives: with Satinder Admit/Transfer: thru ED, from home POA/Emergency contact: Satinder Mckenzie [phone] Current/Previous Home Health: none PCP/Follow-up Care: Dr. Jake Steele Current/Previous DME: none; pt is independent Other Services: none Employment Status: unemployment Areas of Concerns: pancreatitis, diabetes Referral Needs: none Education Needs: medical management IMM/BARNHART given and signed (if applicable): n/a Goal for discharge: home; her daughter or will provide transportation CM/SW left business card at the bedside with contact information. Name and number was also written on the patients whiteboard. Patient verbalized understanding of discussion. CM will follow-up with ongoing discharge and transition of care needs.
[2018-11-16] MEDS: ENOXAPARIN SOD INJ 40 MG/0.4 ML SYR SC SCH (16:43)
[2018-11-16] MEDS: FERROUS SULFATE 325 MG TAB PO SCH (16:43)
--- NOTE | 2018-11-16 17:44 | NUR ---
Nutrition Screen Note RD Recommendation for Physician: -Advancing to GI soft/ ADA diet as medically appropriate -RD provided diet education 11/16 Plan of Care: RD following, monitoring for tolerance and adequacy Nutrition reason for involvement: Nutrition Risk Trigger MST Primary Diagnose(s): Wikzl-zm-wovtbho pancreatitis due to uncontrolled type 2 diabetes and hyperlipidemia. PMH: morbidly obese with known uncontrolled type 2 diabetes and chronic pancreatitis Ht: 60in Wt: 160lb BMI: 31.2kg/m2 IBW: 100lb RD Assessment: (11/16) Chart reviewed. Labs and meds reviewed. 58yo F, who is admitted for abdominal pain. Per MD notes, pt is very noncompliant with her insulin as well as with her triglycerides medications. Visited pt in the room. Pt reports tolerating full liquid diet. 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 Pt complains of some soreness on her abdomen but denies any nausea or vomiting. LBM 11/16. Pt denies any chewing or swallowing difficulty. HbA1C is 9.1%. RD provided diet education. Will continue to monitor and follow. Current Diet: Full liquid diet Malnutrition Evaluation (11/16/18) The patient does not meet criteria for a specified degree of malnutrition at this time. Will re-evaluate at follow-up as appropriate. Diet Education Needs Assessment: Diet education indicated, pt is agreeable with plan. Learner(s): pt Barriers: none Cultural/Language Modifications: none Readiness: unsure Method: handouts, explanation Topics: carbohydrate counting, label reading Understanding/Compliance: Understood. All questions have been answered. Nutrition Care Level: low Signed: Jumana Farrar, MS, RD, LD
--- NOTE | 2018-11-16 19:05 | NUR ---
Completed bedside rounds with morning nurse. Pt alert to name. Lying in bed 45 degrees. Denies pain at this time. c/o flatulence. No acute distress noted.
[2018-11-16] MEDS ORDERED: SIMETHICONE 80 MG CHEW PO PRN (19:30)
[2018-11-16 20:35] LABS: AMYLASE 55 U/L (25-125); LIPASE 44 U/L (8-78)
[2018-11-16] MEDS: ATORVASTATIN 20 MG TAB PO SCH (21:51)
[2018-11-17] VITALS: BP 101/66
[2018-11-17 04:00] VITALS: BP 129/73
--- NOTE | 2018-11-17 07:04 | NUR ---
received pt lying in bed with eyes closed, Resp even and unlabored. call light within reach. spouse at bedside with eyes closed.
[2018-11-17] MEDS: INSULIN REGULAR, HUMAN 100 UNIT/1 ML 3ML VIAL SQ SCH ×2 (07:30→12:34)
[2018-11-17 07:41] VITALS: BP 109/64
[2018-11-17 07:53] VITALS: BP 109/64
[2018-11-17] MEDS: SODIUM BICARBONATE 650 MG TAB PO SCH (08:52)
[2018-11-17] MEDS: PANTOPRAZOLE 40 MG 10ML VIAL IV SCH (08:52)
[2018-11-17] MEDS: FENOFIBRATE 145 MG TAB PO SCH (08:52)
[2018-11-17] MEDS: ENALAPRIL MALEATE 10 MG TAB PO SCH (08:53)
[2018-11-17] MEDS: INSULIN DETEMIR 100 UNIT/ML PEN SQ SCH (09:00)
[2018-11-17 11:55] VITALS: BP 110/59
--- NOTE | 2018-11-17 12:19 | Discharge Summary ---
FINAL DISCHARGE DIAGNOSES 1. Evhkh-ag-iochqto pancreatitis due to uncontrolled type 2 diabetes and hyperlipidemia. 2. Uncontrolled type 2 diabetes. 3. Hyperlipidemia. 4. Morbid obesity. 5. Medical noncompliance. 6. Non-anion gap metabolic acidosis. CONSULTANTS: None. VITAL SIGNS: Temperature is 97.3, pulse 63, respiratory rate is 18, blood pressure 109/64, and pulse ox 95% on room air. LAB FINDINGS: Show white count 8.4, hemoglobin 11.5, hematocrit 33, and platelets of 257. Coagulation; PT 11, INR 0.77, and PTT 20. Chemistry; sodium was 133, potassium was 3.3, bicarb was 23, chloride was 101, anion gap was 12, BUN was 15, creatinine was 0.71. Hemoglobin A1c 9.1, calcium 9. Lactic acid normal at 17. LFTs were normal. LDL was unmeasurable. Triglycerides was 561. Lipase on admission 355, 83, then 44 on discharge. Urinalysis negative. MICROBIOLOGY: None. IMAGING STUDIES: CT abdomen and pelvis consistent with inflammatory changes around the pancreatic head and third portion of the duodenum with underlying pancreatitis and duodenitis. No free air or abscess formation seen. No collection seen. Chest x-ray found to be negative. HOSPITAL COURSE: A 58-year-old female with known history of uncontrolled type 2 diabetes and pancreatitis who comes in with complaints of epigastric abdominal pain, nausea, vomiting and decreased oral intake. Patient was admitted and found have elevated lipase in melanoma. CT imaging was consistent with acute pancreatitis. Patient was n.p.o., IV fluids, and pain control. She was started on clear liquid and advanced to solid food, which she tolerated well. On discharge, she denies any more epigastric abdominal pain, which resolved well. Hemoglobin A1c was 9.1. Her triglycerides were elevated as well greater than 500. I discussed with the patient about diet modification and also taking her medications to be a very compliance. She verbalized understanding. On the day of discharge, vital signs stable, labs remained stable. Patient was seen, evaluated and examined thoroughly on the day of discharge, no other complaints. Patient verbalized understanding and agreed with plan of care to follow up accordingly as an outpatient with primary care physician in 1 week time. MEDICATIONS: See med reconciliation form. DISPOSITION: Home. CONDITION: Stable. DIET: Heart healthy. In the event of any worsening symptoms, patient advised to come back to the ED for further evaluation. Discharge summary took greater than 35 minutes. CONNOR VALDEZ MD Job#: [id number] LUAN
--- NOTE | 2018-11-17 13:30 | NUR ---
PIV removed with tip intact. denied pain upon d/c. all personal belongings, and d/c instructions in hand at time of d/c. patient was escorted via WC to front lobby entrance where spouse picked up in private auto, safely transferred into auto.
== END 2018-11-17 13:26 | disposition home or self-care (01) | DRG 439 ==
LOC: ER 17:06 → ERHOLD 19:51 → MED/SURG3 20:46
PROVIDERS: ADMIT Internal Medicine; ATTEND Internal Medicine
DX: K85.90 Acute pancreatitis without necrosis or infection, unspecified (principal); E87.2 Acidosis; E78.5 Hyperlipidemia, unspecified; E11.65 Type 2 diabetes mellitus with hyperglycemia; Z91.14 Patient's other noncompliance with medication regimen; Z79.4 Long term (current) use of insulin
CPT/HCPCS: 36415; 71045; 74177; 80048; 80053; 80061; 81001; 82150; 82948; 83036; 83605; 83690; 83735; 84478; 85025; 85610; 85730; 93005; 96374; 99284; J1650; J1940; J2405; J2543; J7030; Q9967

== ENCOUNTER 2019-07-02 11:41 | Inpatient (IN) | payer OTHER ==
[~2019-07-02] VITALS: Ht 144.8 cm; Wt 72.6 kg
[~2019-07-02 11:41] MED LIST changes: +MELATONIN3 MG PO
[2019-07-02] MEDS ORDERED: SODIUM CHLORIDE 0.9% 1000ML 1,000 ML IV STA (12:01)
[2019-07-02 12:22] LABS: BASOPHILS % 0.5 % (0.0-1.0); EOSINOPHILS # (AUTO) 0.1 (0.0-0.4); EOSINOPHILS % 1.5 % (0.0-6.0); HEMATOCRIT 34.6 % (34.2-44.1); HEMOGLOBIN 14.6 g/dL (12.0-16.0); LYMPHOCYTES # (AUTO) 3.5 (1.0-3.2); LYMPHOCYTES % 43.2 % (18.0-39.1); MEAN CORPUSCULAR HEMOGLOBIN 35.8 pg (28-32); MEAN CORPUSCULAR HGB CONC 42.2 g/dL (31-35); MEAN CORPUSCULAR VOLUME 84.8 fL (81-99); MONOCYTES # (AUTO) 0.3 (0.2-0.8); MONOCYTES % 4.1 % (4.4-11.3); NEUTROPHILS # (AUTO) 4.1 (2.1-6.9); NEUTROPHILS % 50.5 % (38.7-80.0); PLATELET COUNT 306 x10e3/uL (140-360); RED BLOOD COUNT 4.08 x10e6/uL (3.6-5.1); RED CELL DISTRIBUTION WIDTH 12.6 % (11.7-14.4)
[2019-07-02] MEDS ORDERED: ONDANSETRON HCL INJ 2MG/ML 2ML 2 MG/ML VIAL IV ONE (12:30)
[2019-07-02] MEDS ORDERED: MORPHINE SULFATE INJ 4 MG/ML INJ 1ML IV ONE ×2 (12:30→13:00)
[2019-07-02 12:35] LABS: INR 0.77; PARTIAL THROMBOPLASTIN TIME 28.6 seconds (23.8-35.5); PROTHROMBIN TIME 11.2 seconds (11.9-14.5)
[2019-07-02 12:59] LABS: ALBUMIN/GLOBULIN RATIO 0.5 (0.8-2.0); ALKALINE PHOSPHATASE 105 IU/L (40-150); AMYLASE 371 U/L (25-125); ANION GAP 13.9 mmol/L (8-16); BLOOD UREA NITROGEN 8 mg/dL (7-26); BUN/CREATININE RATIO 14 (6-25); CALCIUM 9.5 mg/dL (8.4-10.2); CARBON DIOXIDE 23 mmol/L (22-29); CHLORIDE 97 mmol/L (98-107); CREATININE, SERUM 0.57 mg/dL (0.57-1.11); EST GLOMERULAR FILTRATION RATE > 60 ML/MIN (60-); GLUCOSE 155 mg/dL (74-118); LIPASE 643 U/L (8-78); POTASSIUM 3.9 mmol/L (3.5-5.1); SODIUM 130 mmol/L (136-145)
[2019-07-02] MEDS ORDERED: MORPHINE SULFATE 5 MG/ML VIAL IV ONE (13:00)
--- NOTE | 2019-07-02 13:01 | Diagnostic Imaging Report ---
Right upper quadrant abdominal ultrasound, 07/02/2019. History: Right upper quadrant pain. Comparison: CT 11/14/2018. Discussion: Transverse and longitudinal images of the right upper quadrant of the abdomen were obtained demonstrating a liver of normal size and echogenicity measuring 14.7 cm in length. There is no evidence of a focal hepatic mass. The portal vein is patent with hepatopetal flow and is within normal limits measuring 9 mm in diameter. The biliary tree is within normal limits with the common bile duct measuring 2 mm in diameter. The gallbladder is normal without evidence of wall thickening or pericholecystic fluid. The sonographic Davis's sign was negative. The right kidney is normal in size and echogenicity without evidence of hydronephrosis, stones, or mass and measures 10.8 cm in length. The pancreas was obscured by overlying bowel gas. The abdominal aorta is within normal limits. There is no evidence of free fluid. IMPRESSION: No evidence of cholelithiasis or hepatic abnormality. Pancreas not visible. Otherwise unremarkable exam. Signed by: Boby Metzger on 07/02/2019 12:58 PM
[2019-07-02 13:23] LABS: ALANINE AMINOTRANSFERASE < 30 IU/L (0-55); CREATINE KINASE 71 IU/L (29-168)
[2019-07-02 13:23] LABS: CLARITY,URINE CLEAR (CLEAR); COLOR,URINE YELLOW (YELLOW)
[2019-07-02 13:24] LABS: BILIRUBIN,URINE NEGATIVE (NEGATIVE); KETONES,URINE NEGATIVE (NEGATIVE); LEUKOCYTE ESTERASE ,URINE NEGATIVE (NEGATIVE); NITRITE,URINE NEGATIVE (NEGATIVE); PROTEIN,URINE DIPSTICK NEGATIVE (NEGATIVE); URINE UROBILINOGEN 0.2 mg/dL (0.2 - 1)
[2019-07-02 13:42] LABS: BACTERIA,URINE FEW /HPF; EPITHELIAL CELLS,URINE FEW /LPF; RBC,URINE 0-5 /HPF (0-5); WBC,URINE (MAN) 0-5 /HPF (0-5)
[2019-07-02 13:59] LABS: LYMPHOCYTES % (MANUAL) 36 % (19-48); MONOCYTES % (MANUAL) 6 % (3.4-9.0); NEUTROPHILS % (MANUAL) 54 % (40-74); PLATELET ESTIMATE ADEQUATE; PLATELET MORPHOLOGY COMMENT NORMAL; RBC MORPHOLOGY COMMENT NORMAL
--- NOTE | 2019-07-02 15:08 | Diagnostic Imaging Report ---
CT of the abdomen and pelvis, with contrast, 07/02/2019. History: Upper abdominal pain. Comparison: 11/14/2018. Technique: Multidetector CT scanning of the abdomen and pelvis was performed from the level of the lung bases to the inferior pubic rami after intravenous and oral administration of contrast. Coronal and sagittal multiplanar reformations were obtained. RADIATION DOSE: Total DLP: 452 mGy*cm Dose modulation, iterative reconstruction, and/or weight based adjustment of the mA/kV was utilized to reduce the radiation dose to as low as reasonably achievable. Discussion: LUNG BASES: There is bibasilar dependent atelectasis. ABDOMEN: There is slightly increased fluid around the pancreatic head and duodenum extending along the right anterior pararenal space. There is no focal fluid collection. There is normal enhancement of the pancreas. There is no pancreatic ductal dilatation. A 2.4 x 1.8 cm oval nodule is again seen in the right adrenal gland. The liver, gallbladder, biliary tree, spleen, left adrenal gland, and kidneys are normal. The hepatic vein, portal vein, and splenic vein are patent. The abdominal aorta is within normal limits for size. The appendix is visualized and is normal. There is no bowel dilatation. There is no evidence of adenopathy or free fluid. PELVIS: The bladder, uterus, and adnexa are normal in appearance. There is no evidence of free fluid or adenopathy. BONES AND SOFT TISSUES: Mild degenerative changes are present throughout the lumbar spine without evidence of lytic or sclerotic lesion. IMPRESSION: 1. Slight increase in peripancreatic fluid suggestive of worsening of pancreatitis. No evidence of pancreatic necrosis or pseudocyst formation. Correlate with laboratory values. 2. Stable right adrenal nodule. Otherwise unremarkable CT of the abdomen and pelvis. Signed by: Boby Metzger on 07/02/2019 3:05 PM
[2019-07-02] MEDS ORDERED: FENTANYL CITRATE/PF 100MCG/2 ML INJ IV ONE (15:30)
[2019-07-02] MEDS ORDERED: SODIUM CHLORIDE 0.9% 1000ML 1,000 ML IV SCH (15:48)
[2019-07-02] MEDS ORDERED: MORPHINE SULFATE INJ 4 MG/ML INJ 1ML IV PRN (16:00)
[2019-07-02] MEDS ORDERED: MORPHINE SULFATE 2 MG/ML SYR 1ML IV PRN (16:00)
[2019-07-02] MEDS ORDERED: DEXTROSE 50% SYRINGE 50 ML IV PRN (17:00)
[2019-07-02] MEDS ORDERED: HYDROMORPHONE 2MG/ML 2 MG/ML ML IV ONE (17:00)
[2019-07-02] MEDS: ONDANSETRON HCL INJ 2MG/ML 2ML 2 MG/ML VIAL IV PRN (17:40)
[2019-07-02] MEDS ORDERED: SODIUM CHLORIDE 0.9% 50ML 50 ML ONE (18:23)
[2019-07-02] MEDS ORDERED: IOPAMIDOL 370 MG/ML 200 ML INFUS..BTL INJ ONE (18:23)
--- NOTE | 2019-07-02 18:23 | NUR ---
SPOKE WITH DR GANT ABOUT CONSULT FOR PANCREATITIS. DR GANT STATED HE WOULD SEE THE PATIENT 07/03/18
[2019-07-02 18:31] VITALS: BP 148/78
--- NOTE | 2019-07-02 18:39 | History and Physical ---
CHIEF COMPLAINT: Acute pancreatitis. HISTORY OF PRESENT ILLNESS: The patient is a 58-year-old female with multiple chronic medical problems. The patient had previous acute pancreatitis back in late October 2018 and then also found to have uncontrolled diabetes type 2, on insulin therapy, morbidly obese with dyslipidemia, hypertension, came in this time with severe abdominal pain associated with increase in lipase level of 643, amylase of 371 in setting of acute on chronic pancreatitis. The patient is in severe pain. IV fluids initiated. The patient is otherwise in pain, but she is medically stable. Blood pressure went up to 150/100 due to pain. PAST MEDICAL HISTORY: Chronic pancreatitis, obesity, dyslipidemia, high triglyceride level, diabetes type 2, on insulin therapy, chronic anemia, dyslipidemia. PAST SURGICAL HISTORY: Noncontributory. SOCIAL HISTORY: The patient does not smoke or use alcohol. No regular drugs. ALLERGIES: NO KNOWN ALLERGIES. HOME MEDICATIONS: List is reviewed. The patient is on Lipitor, enalapril, fenofibrate, ferrous sulfate, Levemir, melatonin, and metformin. PHYSICAL EXAMINATION: VITAL SIGNS: Temperature is 98, blood pressure 150/100, pulse rate is 90, respirations 22. GENERAL: The patient is in pain, but she is not in any respiratory distress. HEENT: Normocephalic, atraumatic. Pupils reactive. Anicteric. NECK: Supple grossly. PULMONARY: Diminished breath sounds. CARDIOVASCULAR: Regular rate and rhythm and tachycardia. ABDOMEN: Tenderness with some guarding. No rebound. EXTREMITIES: No cyanosis or edema. NEUROLOGIC: No gross focal deficit. LABORATORY DATA: WBC is 8, hemoglobin 14.6, hematocrit 34.6, platelets is 305. Chemistry; sodium is 130, potassium 3.9, chloride 97, bicarb is 23, BUN is 8, creatinine 0.6, glucose is 155, AST is 74, ALT is less than 30, alkaline phosphatase is 105, lipase 643, amylase is 371. Coagulation PT is 11.2. Urinalysis is negative. IMAGING TESTS: CT of abdomen and pelvis with contrast showed that the patient had increase in peripancreatic fluid suggestive of worsening pancreatitis. No evidence of necrosis or pseudocyst formation. Gallbladder ultrasound showed no gallstones. IMPRESSION: 1. Acute on chronic pancreatitis associated with intractable abdominal pain. 2. Multiple chronic baseline problems. PLAN: Continue with pain control. Increase in IV fluid. Resuscitation with 300 mL/hour for 1 L and then 200 mL/hour. Consultation with Dr. Ortega Howard. Consultation with Dr. Joseph Welch. Pain control with IV Dilaudid. Insulin sliding scale coverage. Keep the patient nothing by mouth for now. We will repeat lab work in the morning. MD RAQUEL Kelsey/JATIN /[id number]
[2019-07-02] MEDS: LACTATED RINGER'S 1,000 ML IV SCH ×2 (18:45→23:32)
[2019-07-02 19:15] VITALS: BP 96/77
[2019-07-02 20:27] LABS: CREATINE KINASE MB 1.8 ng/mL (0-5.0)
[2019-07-02 20:49] VITALS: BP 96/77
[2019-07-02] MEDS: INSULIN LISPRO 100 UNIT/1 ML 3ML VIAL SQ SCH (21:00)
[2019-07-02] MEDS: INSULIN GLARGINE 100 UNITS/ML VIAL SQ SCH (21:47)
[2019-07-02] MEDS: HYDROMORPHONE 1MG/1ML INJ IV PRN (22:12)
--- NOTE | 2019-07-02 22:12 | NUR ---
BLOOD PRESSURE REASSESSED WITH READING OF 145/89. PATIENT ASSISTED TO THE RESTROOM TO VOID, SHE'S NOW BACK IN BED AND C/O SEVERE ABDOMINAL PAIN. MEDICATED WITH DILAUDID ORDERED, O2@2L/NC, CALL LIGHT WITHIN EASY REACH, SHE'S INSTRUCTED TO CALL FOR ASSISTANCE UPON GETTING OUT OF THE BED DUE TO SIDE EFFECT FROM THE MEDICATION.
[2019-07-02] MEDS ORDERED: PANTOPRAZOLE 40 MG 10ML VIAL IV STA (23:52)
[2019-07-03] VITALS (8 sets, daily range): BP systolic 112–145; BP diastolic 59–89
--- NOTE | 2019-07-03 01:12 | NUR ---
PATIENT RESTING COMFORTABLY IN BED. DR Last HEAD SAW AND EXAMINED THE PATIENT, NEW ORDERS RECEIVED.
[2019-07-03] MEDS: LACTATED RINGER'S 1,000 ML IV SCH ×5 (03:21→22:47)
[2019-07-03] MEDS: HYDROMORPHONE 1MG/1ML INJ IV PRN ×8 (03:32→22:47)
[2019-07-03] MEDS: ONDANSETRON HCL INJ 2MG/ML 2ML 2 MG/ML VIAL IV PRN (03:33)
--- NOTE | 2019-07-03 03:33 | NUR ---
PATIENT C/O NAUSEA AND ABDOMINAL PAIN, MEDICATED WITH DILAUDID AND ZOFRAN ORDERED. SHE WAS ASSISTED TO THE RESTROOM TO VOID PRIOR TO ADMINISTERING THE MEDICATIONS. CALL LIGHT WITHIN EASY REACH, BED ALARM ON, WILL REASSESS PER PROTOCOL.
[2019-07-03 06:27] LABS: BASOPHILS % 0.1 % (0.0-1.0); EOSINOPHILS % 0.1 % (0.0-6.0); HEMATOCRIT 30.8 % (34.2-44.1); HEMOGLOBIN 10.7 g/dL (12.0-16.0); LYMPHOCYTES % 17.7 % (18.0-39.1); MEAN CORPUSCULAR HEMOGLOBIN 29.7 pg (28-32); MEAN CORPUSCULAR HGB CONC 34.7 g/dL (31-35); MEAN CORPUSCULAR VOLUME 85.6 fL (81-99); MONOCYTES # (AUTO) 0.4 (0.2-0.8); MONOCYTES % 3.7 % (4.4-11.3); NEUTROPHILS % 77.8 % (38.7-80.0); PLATELET COUNT 243 x10e3/uL (140-360); RED CELL DISTRIBUTION WIDTH 12.6 % (11.7-14.4)
--- NOTE | 2019-07-03 06:37 | NUR ---
PATIENT C/O PAIN TO THE ABDOMEN WITH PAIN SCORE #8, MEDICATED WITH DILAUDID ORDERED. IMMEDIATELY AFTER ADMINISTERING THE MEDICATION SHE STARTED DRY HEAVING. IT'S NOT TIME TO ADMINISTER ZOFRAN, BACK RUBBED PROVIDED AND IT SEEMS TO HELP RELAXED THE PATIENT. CALL LIGHT WITHIN EASY REACH, SHE'S INSTRUCTED TO CALL FOR ASSISTANCE UPON GETTING OUT OF THE BED.
[2019-07-03 06:48] LABS: CREATINE KINASE MB 0.9 ng/mL (0-5.0)
--- NOTE | 2019-07-03 07:00 | NUR ---
received am report from [facility], morning rounds done. pt is alert, lying in bed. pt is complaining of nausea, pain is 0/10. provided the patient with nausea bags, will check when next dose of Zofran is due. call light within reach. is at the bedside.
[2019-07-03 07:02] LABS: ALANINE AMINOTRANSFERASE 10 IU/L (0-55); ALBUMIN 3.1 g/dL (3.5-5.0); ALBUMIN/GLOBULIN RATIO 0.9 (0.8-2.0); ALKALINE PHOSPHATASE 78 IU/L (40-150); ANION GAP 11.9 mmol/L (8-16); BLOOD UREA NITROGEN 6 mg/dL (7-26); BUN/CREATININE RATIO 10 (6-25); CALCIUM 8.4 mg/dL (8.4-10.2); CARBON DIOXIDE 24 mmol/L (22-29); CHLORIDE 103 mmol/L (98-107); CREATININE, SERUM 0.58 mg/dL (0.57-1.11); EST GLOMERULAR FILTRATION RATE > 60 ML/MIN (60-); GLUCOSE 182 mg/dL (74-118); MAGNESIUM 2.1 MG/DL (1.3-2.1); PHOSPHORUS 3.4 MG/DL (2.3-4.7); POTASSIUM 3.9 mmol/L (3.5-5.1); SODIUM 135 mmol/L (136-145)
[2019-07-03 07:30] LABS: CHOL/HDL RATIO 7.2 (3.0-3.6); CHOLESTEROL 202 MD/DL (0-199); HDL CHOLESTEROL 28 MG/DL (40-60); TRIGLYCERIDES 702 MG/DL (0-149)
[2019-07-03] MEDS: INSULIN LISPRO 100 UNIT/1 ML 3ML VIAL SQ SCH ×4 (07:30→21:00)
[2019-07-03 07:49] LABS: THYROID STIMULATING HORMONE 2.313 uIU/mL (0.350-4.940)
[2019-07-03] MEDS: PANTOPRAZOLE 40 MG 10ML VIAL IV SCH ×2 (08:37→21:54)
--- NOTE | 2019-07-03 10:23 | NUR ---
called and talked to Dr. Marti about consult put in by Dr. Mcclelland
--- NOTE | 2019-07-03 10:47 | Consultation ---
DATE OF CONSULTATION: 07/03/2019 HISTORY OF PRESENT ILLNESS: The patient is a 58-year-old female, who has history of previous pancreatitis, was admitted to the hospital with recurrence of pancreatitis. She says she has had at least 2 previous hospitalizations with pancreatitis. The etiology of pancreatitis is not clear, possibly due to elevated triglycerides. Ultrasound of the gallbladder does not revealed any gallstones. The patient at this point complains of epigastric pain with back pain with associated nausea. She has been hemodynamically stable. A CT of the abdomen revealed changes of pancreatitis. Ultrasound did not reveal any gallstones. PAST MEDICAL HISTORY: Significant for previous pancreatitis, hyperlipidemia, type 2 diabetes. She has had previous abdominal surgery, previous repair of a hiatal hernia, had a surgery to open what she calls small bowel sphincter, previous excision of her breast mass. ALLERGIES: SHE HAS NO KNOWN ALLERGIES. MEDICATIONS: Listed in the chart that include Lipitor, enalapril, fenofibrate, iron, Levemir, melatonin, and metformin. FAMILY HISTORY: Noncontributory. SOCIAL HISTORY: The patient does not smoke cigarettes or drink alcohol, use any other drugs. REVIEW OF SYSTEMS: As stated above. She has had no fever. PHYSICAL EXAMINATION: GENERAL: The patient is awake and alert. VITAL SIGNS: Normal. She is not tachycardic. She is afebrile. HEENT: There is no scleral icterus. NECK: Has no masses. LUNGS: Equal breath sounds are clear bilaterally. CARDIAC: Regular rate and rhythm with no murmur. ABDOMEN: Soft. There is slight distention. EXTREMITIES: Warm. There is no edema. Pulses are palpable. NEUROLOGIC: Intact. LABORATORY DATA: White blood cell count is 11.5, hemoglobin 10.7, hematocrit 30.8. Chemistries; elevated amylase 371, lipase 643. The liver function tests were normal. ASSESSMENT: A 58-year-old female with recurrent pancreatitis. PLAN: I agree with the plan to evaluate with MRCP. The etiology of pancreatitis is not clear at this time. There are no signs of acute abdomen that require immediate surgical intervention. Recommend keeping the patient n.p.o. on IV fluids. Hopefully, pancreatitis will resolve. Thank you for asking me to see Ms. Mckenzie. MD JORDANA Duran/JATIN /[id number]
--- NOTE | 2019-07-03 12:42 | Diagnostic Imaging Report ---
EXAM: Magnetic Resonance Cholangiopancreatography (M.R.C.P.) INDICATION: ^PANCREATITIS COMPARISON: CT abdomen and pelvis 07/02/2019 TECHNIQUE: Multiplanar, multisequence MRCP was performed, with sequences including coronal turbo spin-echo T1-weighted scans, [facility] MRCP scans, coronal spin, [facility] MPR 2[facility], [facility] MRCP CASEY. IV Contrast: None Oral Contrast: None Medications: None COMPLICATIONS: None FINDINGS: LOWER THORAX: Unremarkable. HEPATOBILIARY: No focal hepatic lesions. No intra or extrahepatic biliary ductal dilation. GALLBLADDER: No radio-opaque stones or sludge. No wall thickening. SPLEEN: No splenomegaly. PANCREAS: Persistent a small amount of fluid surrounding the pancreatic head. The pancreatic parenchyma is intact without necrosis or pseudocyst. The pancreatic duct is normal in caliber without filling defects, strictures, or masses. ADRENALS: Stable right adrenal gland nodule. KIDNEYS/URETERS: No hydronephrosis. No cystic or solid mass lesions. No stones. GI TRACT: No abnormal distention, wall thickening, or evidence of bowel obstruction. Appendix is normal. LYMPH NODES: No lymphadenopathy. VESSELS: Unremarkable. PERITONEUM / RETROPERITONEUM: No free air or fluid. BONES: Unremarkable. SOFT TISSUES: Unremarkable. IMPRESSION: 1. Stable acute noncomplicated pancreatitis. 2. Normal caliber of the intra and extrahepatic biliary ducts without filling defects, strictures, or obstructing stones. 3. Normal gallbladder. Signed by: Dr. Elba Asif M.D. on 07/03/2019 12:39 PM
[2019-07-03] MEDS: PIPER-TAZ 3.375 GM 50 ML IV SCH ×2 (12:48→18:00)
--- NOTE | 2019-07-03 16:48 | NUR ---
Nutrition Screen Note RD Recommendation for Physician: -Advance diet as medically appropriate and tolerated to ADA Cardiac Diet Plan of Care: RD following, monitoring for tolerance and adequacy, nutrition education Nutrition reason for involvement: Nutrition Risk Trigger- Diagnosis Primary Diagnose(s): PMH: Chronic pancreatitis, obesity, dyslipidemia, high triglycerides, diabetes type 2, on insulin therapy, chronic anemia Ht: 57in Wt: 160lbs BMI: 34.61kg/m2 IBW: 34.61lb+/- 10% RD Assessment: (07/03) Chart Reviewed. Labs and meds reviewed. Lipase today was 146. 58 y/o F who has had previous acute pancreatitis (October 2018) with hx of uncontrolled diabetes type 2. Patient was admitted with severe abdominal pain, lipase level of 643, amylase of 371 in setting of acute on chronic pancreatitis. Visited patient in room, patient noted was in pain and sleepy. Son and daughter present during time of visit and able to provide nutrition related history for patient. Patient currently NPO. Reported ongoing nausea without vomiting, denied any D/C. No significant recent weight loss noted, reported a UBW of 160lbs. Follows no special diet at home, history of non-compliance per pts son. RD provided information on low fat diet for pancreatitis. Will continue to monitor and follow as needed. Current Diet: NPO Malnutrition Evaluation (07/03) The patient does not meet criteria for a specified degree of malnutrition at this time. Will re-evaluate at follow-up as appropriate. Diet Education Needs Assessment: Diet education indicated, educated patient, son and daughter on diet for pancreatitis Learner(s): patient son and daughter Barriers: patient in distress Cultural/Language Modifications: none Readiness: acceptance Method: verbal and handout provided Topics: pancreatitis, low fat diet Understanding/Compliance poor/fair/good compliance expected, will need reinforcement Nutrition Care Level: MODERATE Signed: Izzy Mercado, MS, RDN, LD
--- NOTE | 2019-07-03 17:40 | Consultation ---
DATE OF CONSULTATION: 07/03/2019 Endocrine Consultation The patient of Dr. Mcclelland. Thank you very much for referring this patient. HISTORY OF PRESENT ILLNESS: This is a 58-year-old lady who came to the hospital with history of severe pain in the abdomen and was found to have an acute pancreatitis. The patient has had at least 5 to 6 episodes of acute pancreatitis in the past few years. Last episode was in October of last year. The patient also has history of diabetes mellitus type 2 uncontrolled with complication. She takes about 45 units of Levemir twice a day. She has history of hyperlipidemia, hypertension. She tells me she also takes Lipitor and a fenofibrate at home. At the time of admission, her lipase was 643 and amylase was 371. The patient is admitted to the hospital for further evaluation and management. The patient is a nonsmoker. She does not drink alcohol. During the hospital stay, her blood sugars are also elevated in 221 and 219 mg/dL. Her triglyceride is 702 and the cholesterol is 202. PHYSICAL EXAMINATION: GENERAL: Today, the patient is alert, awake, little bit apprehensive. She is complaining of pain in the abdomen. She has distended abdomen, tenderness in epigastric in the right upper quadrant area. VITAL SIGNS: Her heart rate is around 78, blood pressure 130/80 mmHg. HEENT: Essentially unremarkable. Thyroid is palpable. Clinically, she is near euthyroid. Chest is bilateral vesicular breathing. CARDIOVASCULAR: First and second heart sounds. There is no third or fourth heart. IMPRESSION: Recurrent acute pancreatitis related to hyperlipidemia, diabetes mellitus type 2 uncontrolled with complications, hypertension, hyperlipidemia. PLANS: The plan at this time is to the patient is n.p.o. for now. We will adjust. We will put her on the Lantus insulin once a day and also Humalog depending upon the blood sugars. I have restarted her on fenofibrate for now. I had a long talk with the patient and her daughters and the son. Thank you again for referring this patient. I will be following this patient with you. MD MARY Diaz/JATIN /[id number] MTDD
[2019-07-03] MEDS: PROMETHAZINE 12.5MG/ NACL 0.9% 12.5 MG/50 ML BAG IV PRN (18:00)
[2019-07-03] MEDS: FENOFIBRATE 145 MG TAB PO SCH (18:46)
--- NOTE | 2019-07-03 19:43 | NUR ---
PATIENT ASSISTED TO THE RESTROOM, SHE'S NOW BACK IN BED WITH CALL LIGHT WITHIN EASY REACH. SHE C/O ABDOMINAL PAIN, MEDICATED WITH DILAUDID ORDERED. FAMILY MEMBERS WITH THE PATIENT, WILL REASSESS.
[2019-07-03] MEDS: INSULIN GLARGINE 100 UNITS/ML VIAL SQ SCH (21:55)
--- NOTE | 2019-07-03 22:48 | NUR ---
PATIENT C/O ABDOMINAL PAIN, MEDICATED WITH DILAUDID ORDERED. ASSISTED WITH ADLS, CALL LIGHT WITHIN EASY REACH, FAMILY MEMBERS WITH THE PATIENT.
[2019-07-04] VITALS (7 sets, daily range): BP systolic 110–143; BP diastolic 58–77
[2019-07-04] MEDS: PIPER-TAZ 3.375 GM 50 ML IV SCH ×4 (00:15→16:33)
--- NOTE | 2019-07-04 00:21 | NUR ---
PATIENT RESTING IN BED, NO RESPIRATORY DISTRESS OBSERVED. CALL LIGHT WITHIN EASY REACH, BED ALARM ON AND PATIENT INSTRUCTED TO CALL FOR ASSISTANCE NEEDED.
[2019-07-04] MEDS: LACTATED RINGER'S 1,000 ML IV SCH ×4 (03:25→14:45)
[2019-07-04] MEDS: HYDROMORPHONE 1MG/1ML INJ IV PRN ×4 (03:27→18:39)
--- NOTE | 2019-07-04 03:30 | NUR ---
PATIENT ASSISTED TO THE RESTROOM TO VOID, SHE'S NOW BACK IN BED. SHE C/O ABDOMINAL PAIN, MEDICATED WITH DILAUDID ORDERED. CALL LIGHT WITHIN EASY REACH, SHE'S INSTRUCTED TO CALL FOR ASSISTANCE NEEDED.
--- NOTE | 2019-07-04 07:04 | NUR ---
pt alert resp even and unlabored at this time, no distress noted, call light in reach
[2019-07-04] MEDS: INSULIN LISPRO 100 UNIT/1 ML 3ML VIAL SQ SCH ×4 (07:30→20:44)
[2019-07-04] MEDS: PANTOPRAZOLE 40 MG 10ML VIAL IV SCH ×2 (08:32→21:02)
[2019-07-04] MEDS: FENOFIBRATE 145 MG TAB PO SCH (08:32)
[2019-07-04] MEDS ORDERED: FENOFIBRATE 145 MG TAB PO SCH (09:00)
[2019-07-04] MEDS: PROMETHAZINE 12.5MG/ NACL 0.9% 12.5 MG/50 ML BAG IV PRN (14:23)
[2019-07-04] MEDS: CELECOXIB 200 MG CAP PO SCH (16:33)
[2019-07-04] MEDS: DEXTROSE 5%/0.45% SOD CHL 1,000 ML IV SCH (18:40)
--- NOTE | 2019-07-04 19:00 | NUR ---
received report from day nurse. patient is resting comfortably in bed. bed is in lowest position and call blanton is within reach. will continue to monitor patient.
--- NOTE | 2019-07-04 19:18 | NUR ---
report given to oncoming nurse, pt stable.
[2019-07-04] MEDS ORDERED: KETOROLAC TROMETHAMINE 30 MG/ML VIAL IV STA (19:49)
[2019-07-04] MEDS ORDERED: MAGNESIUM/ALUMINUM/SIMETHICONE 30 ML UDC PO PRN (20:00)
[2019-07-04] MEDS ORDERED: BISACODYL 10 MG SUPP PR ONE (20:00)
--- NOTE | 2019-07-04 20:15 | NUR ---
patients temperature is 100.4. notified. Received new order for tylenol 650mg po q 6 hours for elevated temperature. Will continue to monitor patients temperature.
[2019-07-04] MEDS: ACETAMINOPHEN 325 MG TAB PO PRN (21:02)
[2019-07-04] MEDS: INSULIN GLARGINE 100 UNITS/ML VIAL SQ SCH (21:03)
--- NOTE | 2019-07-04 22:00 | NUR ---
patients temperature has been reassessed and found to be 98.1. Will continue to monitor patients temperature.
[2019-07-05] VITALS (8 sets, daily range): BP systolic 118–137; BP diastolic 67–86
[2019-07-05] MEDS: DEXTROSE 5%/0.45% SOD CHL 1,000 ML IV SCH (00:17)
[2019-07-05] MEDS: PIPER-TAZ 3.375 GM 50 ML IV SCH ×4 (00:17→16:16)
[2019-07-05] MEDS: LACTATED RINGER'S 1,000 ML IV SCH ×3 (02:04→17:38)
[2019-07-05 05:33] LABS: BASOPHILS % 0.2 % (0.0-1.0); EOSINOPHILS # (AUTO) 0.2 (0.0-0.4); EOSINOPHILS % 2.4 % (0.0-6.0); HEMATOCRIT 28.2 % (34.2-44.1); HEMOGLOBIN 9.5 g/dL (12.0-16.0); LYMPHOCYTES # (AUTO) 2.9 (1.0-3.2); LYMPHOCYTES % 33.7 % (18.0-39.1); MEAN CORPUSCULAR HEMOGLOBIN 29.6 pg (28-32); MEAN CORPUSCULAR HGB CONC 33.7 g/dL (31-35); MEAN CORPUSCULAR VOLUME 87.9 fL (81-99); MONOCYTES # (AUTO) 0.5 (0.2-0.8); MONOCYTES % 5.8 % (4.4-11.3); NEUTROPHILS # (AUTO) 4.9 (2.1-6.9); NEUTROPHILS % 57.8 % (38.7-80.0); PLATELET COUNT 234 x10e3/uL (140-360); RED BLOOD COUNT 3.21 x10e6/uL (3.6-5.1)
--- NOTE | 2019-07-05 06:42 | NUR ---
report given to day nurse. patient is resting comfortably in bed. bed is in lowest position and call blanton is within reach.
[2019-07-05 07:59] LABS: FERRITIN 303.55 ng/mL (4.63-204.00)
[2019-07-05] MEDS: INSULIN LISPRO 100 UNIT/1 ML 3ML VIAL SQ SCH ×4 (08:46→20:27)
[2019-07-05] MEDS: FENOFIBRATE 145 MG TAB PO SCH (08:46)
[2019-07-05] MEDS: PANTOPRAZOLE 40 MG 10ML VIAL IV SCH ×2 (08:46→20:35)
[2019-07-05] MEDS: ACETAMINOPHEN 325 MG TAB PO PRN (08:46)
[2019-07-05] MEDS: CELECOXIB 200 MG CAP PO SCH ×2 (08:46→16:16)
[2019-07-05 09:18] LABS: FOLATE 13.7 ng/mL (7.0-15.4)
--- NOTE | 2019-07-05 19:05 | NUR ---
Resting in bed, family member at bedside, side rails upx2, call light within reach. AAOX3 to time, person, place. Respirations even and unlabored.
[2019-07-05] MEDS: INSULIN GLARGINE 100 UNITS/ML VIAL SQ SCH (21:00)
[2019-07-06] VITALS (8 sets, daily range): BP systolic 122–145; BP diastolic 80–90
[2019-07-06] MEDS: PIPER-TAZ 3.375 GM 50 ML IV SCH ×5 (00:07→23:30)
[2019-07-06] MEDS ORDERED: SIMETHICONE 80 MG CHEW PO PRN ×2 (00:15→00:30)
[2019-07-06] MEDS: LACTATED RINGER'S 1,000 ML IV SCH ×3 (06:32→20:33)
--- NOTE | 2019-07-06 07:10 | NUR ---
pt asleep resp even and unlabored at this time, no distress noted, pt has family member at bedside, call light in reach
[2019-07-06] MEDS: INSULIN LISPRO 100 UNIT/1 ML 3ML VIAL SQ SCH ×4 (07:30→20:32)
[2019-07-06] MEDS: CELECOXIB 200 MG CAP PO SCH ×2 (09:12→16:59)
[2019-07-06] MEDS: IRON SUCROSE 100 MG in SODIUM CHLORIDE 0.9% 100 ML 100 ML IV SCH (09:12)
[2019-07-06] MEDS: PANTOPRAZOLE 40 MG 10ML VIAL IV SCH ×2 (09:12→20:32)
[2019-07-06] MEDS: FENOFIBRATE 145 MG TAB PO SCH (09:12)
--- NOTE | 2019-07-06 19:00 | NUR ---
Nutrition Education Notes: RD returned for repeated diet education. All questions have been answered. Learner(s): pt and daughter Time spent: 20minutes Barriers: No barriers identified. Cultural/Language Modifications: No cultural/language modifications noted. Pt and daughter speak Welsh. Readiness: Acceptance Method: Handouts, explanation Topics: Fat restricted diet Understanding/Compliance: Expect good understanding/compliance from pt. Will benefit from reinforcement. Signed by Jumana Farrar MS, RD, LD
--- NOTE | 2019-07-06 19:39 | NUR ---
report given to oncoming nurse for continued care, pt stable.
[2019-07-06] MEDS: INSULIN GLARGINE 100 UNITS/ML VIAL SQ SCH (20:32)
--- NOTE | 2019-07-06 21:22 | NUR ---
Received bedside report from day shift RN. The patient is sitting up on the bed, not in distress. Call light within reach, bed height low, side rails up x2.
[2019-07-06] MEDS: ACETAMINOPHEN 325 MG TAB PO PRN (22:30)
[2019-07-06] MEDS ORDERED: CYANOCOBALAMIN INJ 1,000 MCG/ML VIAL IM STA (23:39)
[2019-07-07] VITALS (9 sets, daily range): BP systolic 126–142; BP diastolic 75–85
[2019-07-07] MEDS: PROMETHAZINE 12.5MG/ NACL 0.9% 12.5 MG/50 ML BAG IV PRN (04:34)
[2019-07-07 05:11] LABS: BASOPHILS % 0.3 % (0.0-1.0); EOSINOPHILS # (AUTO) 0.2 (0.0-0.4); EOSINOPHILS % 3.3 % (0.0-6.0); HEMATOCRIT 30.9 % (34.2-44.1); HEMOGLOBIN 10.2 g/dL (12.0-16.0); LYMPHOCYTES % 61.1 % (18.0-39.1); MEAN CORPUSCULAR HEMOGLOBIN 28.8 pg (28-32); MEAN CORPUSCULAR VOLUME 87.3 fL (81-99); MONOCYTES # (AUTO) 0.4 (0.2-0.8); MONOCYTES % 6.2 % (4.4-11.3); NEUTROPHILS # (AUTO) 1.9 (2.1-6.9); NEUTROPHILS % 28.9 % (38.7-80.0); PLATELET COUNT 297 x10e3/uL (140-360); RED BLOOD COUNT 3.54 x10e6/uL (3.6-5.1); RED CELL DISTRIBUTION WIDTH 12.5 % (11.7-14.4)
[2019-07-07 05:34] LABS: ALANINE AMINOTRANSFERASE 7 IU/L (0-55); ALBUMIN/GLOBULIN RATIO 0.7 (0.8-2.0); ALKALINE PHOSPHATASE 64 IU/L (40-150); ANION GAP 9.7 mmol/L (8-16); BLOOD UREA NITROGEN 13 mg/dL (7-26); BUN/CREATININE RATIO 19 (6-25); CALCIUM 9.3 mg/dL (8.4-10.2); CARBON DIOXIDE 28 mmol/L (22-29); CHLORIDE 102 mmol/L (98-107); CREATININE, SERUM 0.69 mg/dL (0.57-1.11); EST GLOMERULAR FILTRATION RATE > 60 ML/MIN (60-); GLUCOSE 130 mg/dL (74-118); LIPASE 64 U/L (8-78); POTASSIUM 3.7 mmol/L (3.5-5.1); SODIUM 136 mmol/L (136-145)
--- NOTE | 2019-07-07 05:45 | NUR ---
The patient reported feeling restless leg syndrome which is something she does not experience. She was unable to sleep during the night since she did not have melatonin to assist with the sleep. RN will contact Dr. Mcclelland regarding the patient's status.
[2019-07-07] MEDS: PIPER-TAZ 3.375 GM 50 ML IV SCH ×3 (05:55→16:14)
[2019-07-07] MEDS: ALPRAZOLAM 0.5 MG TAB PO PRN ×2 (05:55→23:56)
[2019-07-07] MEDS: LACTATED RINGER'S 1,000 ML IV SCH ×2 (06:02→16:14)
--- NOTE | 2019-07-07 07:09 | NUR ---
The patient stated the Xanax is not helping with the restlessness of her lower legs. MD will be informed.
[2019-07-07] MEDS: INSULIN LISPRO 100 UNIT/1 ML 3ML VIAL SQ SCH ×4 (07:30→20:15)
[2019-07-07] MEDS: PANTOPRAZOLE 40 MG 10ML VIAL IV SCH ×2 (08:56→20:20)
[2019-07-07] MEDS: FENOFIBRATE 145 MG TAB PO SCH (08:56)
[2019-07-07] MEDS: CYANOCOBALAMIN INJ 1,000 MCG/ML VIAL IM SCH (08:56)
[2019-07-07] MEDS: CELECOXIB 200 MG CAP PO SCH ×2 (08:56→16:14)
[2019-07-07] MEDS: IRON SUCROSE 100 MG in SODIUM CHLORIDE 0.9% 100 ML 100 ML IV SCH (09:30)
--- NOTE | 2019-07-07 19:10 | NUR ---
Report given to oncoming nurse of patient's status. Resting in bed. No s/s of acute distress noted. Side rails upx2, call light within reach, at bedside
[2019-07-07] MEDS: INSULIN GLARGINE 100 UNITS/ML VIAL SQ SCH (20:20)
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
--- NOTE | 2019-07-07 22:23 | NUR ---
PATIENT WALKING UP AND DOWN HALLS WITH , NO SIGNS OF DISTRESS NOTED.
[2019-07-08] MEDS: PIPER-TAZ 3.375 GM 50 ML IV SCH ×2 (00:01→05:56)
[2019-07-08] MEDS: LACTATED RINGER'S 1,000 ML IV SCH (01:40)
[2019-07-08 03:47] VITALS: BP 118/77
--- NOTE | 2019-07-08 06:32 | NUR ---
PAGEKorina ESCOBAR WITH A CONSULT FOR THE PATIENT IN ORDER TO COVER FOR DR. Last HEAD.
[2019-07-08 07:16] VITALS: BP 118/77
[2019-07-08] MEDS: INSULIN LISPRO 100 UNIT/1 ML 3ML VIAL SQ SCH (07:30)
[2019-07-08 07:52] VITALS: BP 150/92
[2019-07-08] MEDS: CELECOXIB 200 MG CAP PO SCH (08:31)
[2019-07-08] MEDS: FENOFIBRATE 145 MG TAB PO SCH (08:31)
[2019-07-08] MEDS: PANTOPRAZOLE 40 MG 10ML VIAL IV SCH (08:31)
[2019-07-08] MEDS: CYANOCOBALAMIN INJ 1,000 MCG/ML VIAL IM SCH (08:31)
[2019-07-08] MEDS: IRON SUCROSE 100 MG in SODIUM CHLORIDE 0.9% 100 ML 100 ML IV SCH (10:24)
[2019-07-08] MEDS ORDERED: ZOFRAN4 MG PO (11:33)
[2019-07-08] MEDS ORDERED: CELEBREX100 MG PO (11:33)
[2019-07-08] MEDS ORDERED: XANAX0.25 MG PO (11:34)
[2019-07-08] MEDS ORDERED: TYLENOL WITH C1 EACH PO (11:34)
[2019-07-08] MEDS ORDERED: VITAMIN B-121000 MC2 SL (11:35)
--- NOTE | 2019-07-08 11:42 | NUR ---
Patient discharged home, prescription given , IV canula removed with tip intact, no ss of infiltration noted, denies any pain or distress this time
--- NOTE | 2019-07-08 15:56 | Discharge Summary ---
PRIMARY CARE PHYSICIAN: Jake Steele MD CONSULTANTS: 1. Joseph Welch MD. 2. Ortega Howard MD. 3. Patricio Marti MD. FINAL DIAGNOSES: 1. Acute on chronic pancreatitis associated with severe abdominal pain associated with triglycerides, high level greater than 702. 2. Anxiety disorder. 3. Hypertension. SUMMARY: The patient is a 58-year-old female baseline diabetes, dyslipidemia, noncompliant to her medication, came to the hospital with acute pancreatitis. It is a noncomplicated pancreatitis. However, the patient was having severe pain. Her lipase was elevated in the level of 643, but her CT scan consistent with acute pancreatitis. The patient also has a very high triglyceride level as well. The patient is stable. She takes her medication. She is stable now. Blood pressure under control. The patient was discharged home today. She will follow up with Dr. Patricio Marti for triglycerides and her diabetes management. She will follow up with Dr. Ortega Howard for monitoring of her acute on chronic pancreatitis. The patient is stable, discharged home today. MD RAQUEL Kelsey/MODL /[id number]
== END 2019-07-08 12:08 | disposition home or self-care (01) | DRG 440 ==
LOC: ER 11:41 → ERHOLD 15:48 → OBSVTOIN 16:50 → MED/SURG2 17:56
PROVIDERS: ADMIT Internal Medicine; ATTEND Internal Medicine
DX: K85.90 Acute pancreatitis without necrosis or infection, unspecified (principal); E78.5 Hyperlipidemia, unspecified; E11.8 Type 2 diabetes mellitus with unspecified complications; I10 Essential (primary) hypertension; F41.9 Anxiety disorder, unspecified; E11.65 Type 2 diabetes mellitus with hyperglycemia; K21.9 Gastro-esophageal reflux disease without esophagitis; D50.9 Iron deficiency anemia, unspecified; E05.90 Thyrotoxicosis, unspecified without thyrotoxic crisis or storm; K86.1 Other chronic pancreatitis
CPT/HCPCS: 36415; 74177; 74181; 76705; 80053; 80061; 81001; 82150; 82550; 82553; 82607; 82728; 82746; 82948; 83036; 83540; 83690; 83735; 84100; 84165; 84443; 84466; 84478; 84484; 85025; 85045; 85610; 85730; 93005; 96367; 96372; 96374; 99284; J1170; J1756; J1815; J2270; J2405; J2543; J2550; J3010; J3420; J7030; J7121; Q9967

== ENCOUNTER 2019-10-08 09:32 | Outpatient (RCR) | payer OTHER ==
[~2019-10-08 09:32] MED LIST changes: +CELEBREX100 MG PO; +TYLENOL WITH C1 EACH PO; +VITAMIN B-121000 MC2 SL; +XANAX0.25 MG PO; +ZOFRAN4 MG PO
== END 2019-10-16 ==
LOC: PT 09:32
PROVIDERS: ATTEND Specialist
DX: M71.551 Other bursitis, not elsewhere classified, right hip (principal); S39.012A Strain of muscle, fascia and tendon of lower back, initial encounter; S16.1XXA Strain of muscle, fascia and tendon at neck level, initial encounter; M25.511 Pain in right shoulder; M62.81 Muscle weakness (generalized); M54.2 Cervicalgia

== ENCOUNTER 2020-06-24 14:43 | Emergency (ER) | payer OTHER ==
[~2020-06-24] VITALS: Ht 144.8 cm; Wt 72.6 kg
[2020-06-24] MEDS ORDERED: TETANUS/DIPHTHERIA TOX ADULT 0.5 ML SYR IM ONE (15:30)
[2020-06-24] MEDS ORDERED: NEOMYCIN/POLYMYX/BACITR OINT 0.9 GM PKT TOP ONE (15:30)
[2020-06-24] MEDS ORDERED: HYDROCODONE/APAP 7.5MG-325MG 1 EA TAB PO ONE (15:30)
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
--- NOTE | 2020-06-24 20:39 | NUR ---
DC'D ON DAY SHIFT AT 1606 BY Kristin ENGLE RN
== END 2020-06-24 16:06 | disposition home or self-care (01) ==
LOC: ER 15:05
DX: T23.251A Burn of second degree of right palm, initial encounter (principal); X19.XXXA Contact with other heat and hot substances, initial encounter; Y92.008 Other place in unspecified non-institutional (private) residence as the place of occurrence of the external cause; I10 Essential (primary) hypertension; E11.9 Type 2 diabetes mellitus without complications; E78.5 Hyperlipidemia, unspecified
CPT/HCPCS: 90471; 90714; 99284

== ENCOUNTER 2022-03-06 09:20 | Inpatient (IN) | payer OTHER ==
[~2022-03-06] VITALS: Ht 154.9 cm; Wt 77.1 kg
[2022-03-06] MEDS ORDERED: SODIUM CHLORIDE 0.9% 1000ML 1,000 ML IV SCH (09:45)
[2022-03-06] MEDS: Morphine 4mg Syringe 4 MG/ML INJ IV PRN ×2 (10:00→12:33)
[2022-03-06 10:26] LABS: BASOPHILS % 0.2 % (0.0-1.0); EOSINOPHILS # (AUTO) 0.1 (0.0-0.4); EOSINOPHILS % 0.7 % (0.0-6.0); HEMOGLOBIN 12.6 g/dL (12.0-16.0); LYMPHOCYTES % 7.9 % (18.0-39.1); MEAN CORPUSCULAR HEMOGLOBIN 29.4 pg (28-32); MEAN CORPUSCULAR HGB CONC 34.1 g/dL (31-35); MEAN CORPUSCULAR VOLUME 86.4 fL (81-99); MONOCYTES # (AUTO) 0.5 (0.2-0.8); MONOCYTES % 3.9 % (4.4-11.3); NEUTROPHILS # (AUTO) 11.3 (2.1-6.9); PLATELET COUNT 294 x10e3/uL (140-360); RED BLOOD COUNT 4.28 x10e6/uL (3.6-5.1); RED CELL DISTRIBUTION WIDTH 12.4 % (11.7-14.4)
[2022-03-06] MEDS ORDERED: ONDANSETRON HCL INJ 2MG/ML 2ML 2 MG/ML VIAL IV STA (10:35)
[2022-03-06] MEDS ORDERED: Morphine 4mg Syringe 4 MG/ML INJ IV ONE (10:45)
[2022-03-06] MEDS ORDERED: ONDANSETRON HCL INJ 2MG/ML 2ML 2 MG/ML VIAL ONE (10:54)
[2022-03-06 10:57] LABS: LIPASE 31 U/L (8-78)
[2022-03-06 10:59] LABS: ALBUMIN 3.8 g/dL (3.5-5.0); ALBUMIN/GLOBULIN RATIO 0.8 (0.8-2.0); CALCIUM 8.3 mg/dL (8.4-10.2); CREATININE, SERUM 0.76 mg/dL (0.57-1.11)
[2022-03-06] MEDS ORDERED: IOPAMIDOL 370 MG/ML 100 ML INFUS..BTL INJ ONE (11:30)
[2022-03-06] MEDS: SODIUM CHLORIDE 0.9% 1000ML 1,000 ML IV SCH ×2 (12:33→17:18)
[2022-03-06] MEDS ORDERED: HYDROMORPHONE 1MG/1ML INJ IV PRN ×2 (12:45→13:30)
[2022-03-06 12:54] LABS: CHOLESTEROL 223 MD/DL (0-199); HDL CHOLESTEROL 32 MG/DL (40-60); TRIGLYCERIDES 505 MG/DL (0-149)
[2022-03-06] MEDS ORDERED: HYDROMORPHONE 1MG/1ML INJ ONE (12:55)
[2022-03-06] MEDS ORDERED: ACETAMINOPHEN 325 MG TAB PO ONE (13:15)
[2022-03-06] MEDS ORDERED: ACETAMINOPHEN 1000 MG/100 ML IV STA (13:16)
[2022-03-06 14:12] LABS: CLARITY,URINE CLEAR (CLEAR); COLOR,URINE YELLOW (YELLOW); KETONES,URINE NEGATIVE (NEGATIVE); LEUKOCYTE ESTERASE ,URINE NEGATIVE (NEGATIVE); NITRITE,URINE NEGATIVE (NEGATIVE); PROTEIN,URINE DIPSTICK NEGATIVE (NEGATIVE); URINE UROBILINOGEN 0.2 mg/dL (0.2 - 1)
[2022-03-06 16:00] VITALS: BP_SYST 115; BP_SYST 135; BP_DIAS 69; BP_DIAS 87
[2022-03-06] MEDS: ONDANSETRON HCL INJ 2MG/ML 2ML 2 MG/ML VIAL IV PRN (16:15)
[2022-03-06 17:07] VITALS: BP 115/69
[2022-03-06] MEDS ORDERED: ACETAMINOPHEN 1000 MG/100 ML IV PRN (19:30)
[2022-03-06 20:58] VITALS: BP 117/66
[2022-03-06] MEDS ORDERED: DEXTROSE 50% SYRINGE 50 ML IV PRN (22:15)
[2022-03-06] MEDS: INSULIN GLARGINE 100 UNITS/ML VIAL SQ SCH (22:15)
[2022-03-07] VITALS (9 sets, daily range): BP systolic 114–136; BP diastolic 60–71
[2022-03-07] MEDS: ONDANSETRON HCL INJ 2MG/ML 2ML 2 MG/ML VIAL IV PRN ×2 (00:26→06:33)
[2022-03-07] MEDS: SODIUM CHLORIDE 0.9% 1000ML 1,000 ML IV SCH ×3 (02:55→19:30)
[2022-03-07] MEDS ORDERED: DICYCLOMINE HCL 20 MG TAB PO ONE (03:00)
[2022-03-07 04:58] LABS: BASOPHILS % 0.1 % (0.0-1.0); EOSINOPHILS % 0.6 % (0.0-6.0); HEMOGLOBIN 11.1 g/dL (12.0-16.0); LYMPHOCYTES # (AUTO) 1.3 (1.0-3.2); LYMPHOCYTES % 17.9 % (18.0-39.1); MEAN CORPUSCULAR HEMOGLOBIN 29.4 pg (28-32); MEAN CORPUSCULAR HGB CONC 33.6 g/dL (31-35); MEAN CORPUSCULAR VOLUME 87.3 fL (81-99); MONOCYTES # (AUTO) 0.4 (0.2-0.8); MONOCYTES % 4.9 % (4.4-11.3); NEUTROPHILS # (AUTO) 5.5 (2.1-6.9); NEUTROPHILS % 76.4 % (38.7-80.0); PLATELET COUNT 253 x10e3/uL (140-360); RED BLOOD COUNT 3.78 x10e6/uL (3.6-5.1); RED CELL DISTRIBUTION WIDTH 12.7 % (11.7-14.4)
[2022-03-07 05:24] LABS: ANION GAP 11.9 mmol/L (8-16); CALCIUM 7.6 mg/dL (8.4-10.2); CREATININE, SERUM 0.64 mg/dL (0.57-1.11); POTASSIUM 3.9 mmol/L (3.5-5.1)
[2022-03-07 05:42] LABS: AMYLASE 42 U/L (25-125); LIPASE 6 U/L (8-78)
[2022-03-07] MEDS: DICYCLOMINE HCL 20 MG TAB PO SCH ×3 (06:00→21:28)
[2022-03-07] MEDS: INSULIN LISPRO 100 UNIT/1 ML 3ML VIAL SQ SCH ×4 (07:30→21:28)
[2022-03-07] MEDS ORDERED: HYDROMORPHONE 1MG/1ML INJ IV PRN (10:30)
[2022-03-07] MEDS ORDERED: LACTATED RINGER'S 1,000 ML INJ ONE (12:00)
[2022-03-07] MEDS ORDERED: ENOXAPARIN SOD INJ 40 MG/0.4 ML SYR SC SCH (17:00)
[2022-03-07] MEDS ORDERED: CIPRO500 MG PO (20:19)
[2022-03-07] MEDS ORDERED: METRONIDAZOLE500 MG PO (20:19)
[2022-03-07] MEDS: INSULIN GLARGINE 100 UNITS/ML VIAL SQ SCH (21:28)
== END 2022-03-07 21:59 | disposition home or self-care (01) | DRG 872 ==
LOC: ER 09:33 → ERHOLD 11:16 → MED/SURG2 15:56
PROVIDERS: ADMIT Internal Medicine; ATTEND Internal Medicine
DX: A41.9 Sepsis, unspecified organism (principal); A09 Infectious gastroenteritis and colitis, unspecified; I10 Essential (primary) hypertension; E11.9 Type 2 diabetes mellitus without complications; E78.5 Hyperlipidemia, unspecified; E66.9 Obesity, unspecified; K76.0 Fatty (change of) liver, not elsewhere classified; I95.1 Orthostatic hypotension; E86.1 Hypovolemia; Z20.822 Contact with and (suspected) exposure to COVID-19; Z68.31 Body mass index [BMI] 31.0-31.9, adult; Z87.898 Personal history of other specified conditions; Z79.4 Long term (current) use of insulin
CPT/HCPCS: 36415; 74177; 80048; 80053; 80061; 81001; 82150; 82948; 83036; 83605; 83690; 84484; 85025; 87040; 87086; 93005; 94799; 99284; J1170; J1650; J1815; J2270; J2405; J2543; J7030; J7121; Q9967; U0002

== ENCOUNTER 2022-12-16 09:51 | Emergency (ER) | payer OTHER ==
[~2022-12-16] VITALS: Ht 144.8 cm; Wt 77.1 kg
[~2022-12-16 09:51] MED LIST changes: +CIPRO500 MG PO; +METRONIDAZOLE500 MG PO
[2022-12-16] MEDS ORDERED: TRAMADOL HCL 50 MG TAB PO ONE ×2 (11:15→13:45)
[2022-12-16 11:37] LABS: BASOPHILS % 0.2 % (0.0-1.0); EOSINOPHILS # (AUTO) 0.1 (0.0-0.4); HEMATOCRIT 38.7 % (38.2-49.6); HEMOGLOBIN 12.5 g/dL (14.0-18.0); LYMPHOCYTES % 42.7 % (18.0-39.1); MEAN CORPUSCULAR HEMOGLOBIN 29.6 pg (28-32); MEAN CORPUSCULAR HGB CONC 32.3 g/dL (31-35); MEAN CORPUSCULAR VOLUME 91.7 fL (81-99); MONOCYTES # (AUTO) 0.5 (0.2-0.8); MONOCYTES % 5.1 % (4.4-11.3); NEUTROPHILS # (AUTO) 4.8 (2.1-6.9); NEUTROPHILS % 50.9 % (38.7-80.0); PLATELET COUNT 296 x10e3/uL (140-360); RED BLOOD COUNT 4.22 x10e6/uL (4.3-5.7); RED CELL DISTRIBUTION WIDTH 11.6 % (11.7-14.4)
[2022-12-16 11:44] LABS: BACTERIA,URINE FEW /HPF; CLARITY,URINE CLEAR (CLEAR); COLOR,URINE YELLOW (YELLOW); EPITHELIAL CELLS,URINE FEW /LPF; KETONES,URINE NEGATIVE (NEGATIVE); LEUKOCYTE ESTERASE ,URINE NEGATIVE (NEGATIVE); NITRITE,URINE NEGATIVE (NEGATIVE); PROTEIN,URINE DIPSTICK NEGATIVE (NEGATIVE); RBC,URINE 0-5 /HPF (0-5); URINE UROBILINOGEN 0.2 mg/dL (0.2 - 1); WBC,URINE (MAN) 0-5 /HPF (0-5)
[2022-12-16 12:04] LABS: INR 0.88; PROTHROMBIN TIME 12.1 seconds (11.9-14.5)
[2022-12-16 12:05] LABS: PARTIAL THROMBOPLASTIN TIME 27.5 seconds (23.8-35.5)
[2022-12-16 12:16] LABS: ALANINE AMINOTRANSFERASE 10 IU/L (0-55); ALBUMIN 3.9 g/dL (3.5-5.0); ALBUMIN/GLOBULIN RATIO 0.9 (0.8-2.0); ALKALINE PHOSPHATASE 94 IU/L (40-150); BLOOD UREA NITROGEN 15 mg/dL (7-26); BUN/CREATININE RATIO 21 (6-25); CALCIUM 9.2 mg/dL (8.4-10.2); CARBON DIOXIDE 25 mmol/L (22-29); CHLORIDE 104 mmol/L (98-107); CREATINE KINASE 68 IU/L (30-200); GLUCOSE 212 mg/dL (74-118); LIPASE 34 U/L (8-78); MAGNESIUM 1.9 MG/DL (1.3-2.1); SODIUM 138 mmol/L (136-145)
[2022-12-16] MEDS ORDERED: KETOROLAC TROMETHAMINE 30 MG/ML VIAL IV ONE (14:14)
[2022-12-16] MEDS ORDERED: NAPROSYN500 MG PO (15:20)
[2022-12-16 15:34] VITALS: BP 136/72
== END 2022-12-16 15:36 | disposition home or self-care (01) ==
LOC: ER 10:20
DX: R10.9 Unspecified abdominal pain (principal); M54.9 Dorsalgia, unspecified; K76.0 Fatty (change of) liver, not elsewhere classified; E11.9 Type 2 diabetes mellitus without complications; I10 Essential (primary) hypertension; E78.5 Hyperlipidemia, unspecified; Z79.4 Long term (current) use of insulin; Z79.84 Long term (current) use of oral hypoglycemic drugs; Z79.899 Other long term (current) drug therapy
CPT/HCPCS: 36415; 71046; 76705; 80053; 81001; 82550; 82553; 83690; 83735; 84484; 85025; 85610; 85730; 87086; 99284; J1885

== ENCOUNTER 2024-02-15 07:02 | Inpatient (IN) | payer BC ==
[~2024-02-15] VITALS: Ht 144.8 cm; Wt 77.1 kg
[~2024-02-15 07:02] MED LIST changes: +JARDIANCE25 MG PO; +NAPROSYN500 MG PO
[2024-02-15] MEDS: Morphine 4mg INJECTION 4 MG/ML INJ IV ONE (08:02)
[2024-02-15] MEDS: ONDANSETRON HCL INJ 2MG/ML 2ML 2 MG/ML VIAL IV STA (08:02)
[2024-02-15] MEDS: SODIUM CHLORIDE 0.9% 1000ML 1,000 ML IV ONE (08:03)
[2024-02-15 08:04] LABS: BASOPHILS % 0.2 % (0.0-1.0); EOSINOPHILS % 0.3 % (0.0-6.0); HEMATOCRIT 40.1 % (34.2-44.1); HEMOGLOBIN 14.2 g/dL (12.0-16.0); LYMPHOCYTES # (AUTO) 0.7 (1.0-3.2); LYMPHOCYTES % 6.1 % (18.0-39.1); MEAN CORPUSCULAR HEMOGLOBIN 30.2 pg (28-32); MEAN CORPUSCULAR HGB CONC 35.4 g/dL (31-35); MEAN CORPUSCULAR VOLUME 85.3 fL (81-99); MONOCYTES # (AUTO) 0.4 (0.2-0.8); MONOCYTES % 3.2 % (4.4-11.3); NEUTROPHILS # (AUTO) 10.5 (2.1-6.9); PLATELET COUNT 348 x10e3/uL (140-360); RED CELL DISTRIBUTION WIDTH 12.9 % (11.7-14.4); WHITE BLOOD COUNT 11.68 x10e3/uL (4.8-10.8)
[2024-02-15 08:24] LABS: ALBUMIN 3.8 g/dL (3.5-5.0); ALBUMIN/GLOBULIN RATIO 0.9 (0.8-2.0); ANION GAP 15.2 mmol/L (8-16); BILIRUBIN,TOTAL 0.3 mg/dL (0.2-1.2); CALCIUM 8.5 mg/dL (8.4-10.2); CREATININE, SERUM 0.88 mg/dL (0.57-1.11); POTASSIUM 4.2 mmol/L (3.5-5.1); TOTAL PROTEIN 8.2 g/dL (6.5-8.1)
[2024-02-15] MEDS ORDERED: IOPAMIDOL 370 MG/ML 100 ML INFUS..BTL INJ ONE (08:42)
[2024-02-15 10:28] LABS: BILIRUBIN,URINE NEGATIVE (NEGATIVE); CLARITY,URINE CLEAR (CLEAR); COLOR,URINE YELLOW (YELLOW); GLUCOSE, URINE 500 (NEGATIVE); KETONES,URINE NEGATIVE (NEGATIVE); LEUKOCYTE ESTERASE ,URINE NEGATIVE (NEGATIVE); NITRITE,URINE NEGATIVE (NEGATIVE); PH,URINE 5.5 (5 - 7); PROTEIN,URINE DIPSTICK NEGATIVE (NEGATIVE); URINE UROBILINOGEN 0.2 mg/dL (0.2 - 1)
[2024-02-15 10:29] LABS: BACTERIA,URINE FEW /HPF; EPITHELIAL CELLS,URINE FEW /LPF; RBC,URINE 0-5 /HPF (0-5); WBC,URINE (MAN) 0-5 /HPF (0-5)
[2024-02-15 11:09] LABS: ANION GAP 14.2 mmol/L (8-16); CALCIUM 8.1 mg/dL (8.4-10.2); CREATININE, SERUM 0.74 mg/dL (0.57-1.11); POTASSIUM 4.2 mmol/L (3.5-5.1)
[2024-02-15] MEDS: LACTATED RINGER'S 1,000 ML INJ SCH (12:25)
[2024-02-15] MEDS: ACETAMINOPHEN 325 MG TAB PO ONE (18:40)
[2024-02-15 20:44] VITALS: BP 111/64; PULSE 81; RESP 18; TEMP 98.5; O2SAT 97
[2024-02-15 21:00] VITALS: BP 111/64; PULSE 81; RESP 18; TEMP 98.5; O2SAT 97
[2024-02-15] MEDS ORDERED: DEXTROSE 50% SYRINGE 50 ML IV PRN (23:00)
[2024-02-15] MEDS: ONDANSETRON HCL INJ 2MG/ML 2ML 2 MG/ML VIAL IV PRN (23:26)
[2024-02-15] MEDS: ACETAMINOPHEN 325 MG TAB PO PRN (23:26)
[2024-02-15] MEDS: Morphine 2mg Syringe 2 MG/ML SYR IV PRN (23:31)
[2024-02-16] VITALS (10 sets, daily range): BP systolic 110–143; BP diastolic 62–81; PULSE 71–88; RESP 17–20; TEMP 97.5–98.4; O2SAT 97–100
[2024-02-16 06:04] LABS: ALBUMIN 2.8 g/dL (3.5-5.0); ALBUMIN/GLOBULIN RATIO 0.8 (0.8-2.0); ANION GAP 12.3 mmol/L (8-16); BILIRUBIN,TOTAL 0.2 mg/dL (0.2-1.2); CALCIUM 7.9 mg/dL (8.4-10.2); CREATININE, SERUM 0.56 mg/dL (0.57-1.11); TOTAL PROTEIN 6.3 g/dL (6.5-8.1)
[2024-02-16 06:11] LABS: POTASSIUM 3.3 mmol/L (3.5-5.1)
[2024-02-16 07:02] LABS: BASOPHILS % 0.2 % (0.0-1.0); EOSINOPHILS # (AUTO) 0.1 (0.0-0.4); HEMATOCRIT 30.4 % (34.2-44.1); LYMPHOCYTES # (AUTO) 1.3 (1.0-3.2); LYMPHOCYTES % 25.8 % (18.0-39.1); MEAN CORPUSCULAR HEMOGLOBIN 30.6 pg (28-32); MEAN CORPUSCULAR HGB CONC 35.2 g/dL (31-35); MEAN CORPUSCULAR VOLUME 86.9 fL (81-99); MONOCYTES # (AUTO) 0.4 (0.2-0.8); MONOCYTES % 8.5 % (4.4-11.3); NEUTROPHILS # (AUTO) 3.2 (2.1-6.9); NEUTROPHILS % 64.3 % (38.7-80.0); PLATELET COUNT 238 x10e3/uL (140-360); RED CELL DISTRIBUTION WIDTH 13.3 % (11.7-14.4); WHITE BLOOD COUNT 4.93 x10e3/uL (4.8-10.8)
[2024-02-16 07:07] LABS: HEMOGLOBIN 10.7 g/dL (12.0-16.0)
[2024-02-16] MEDS: INSULIN LISPRO 100 UNIT/1 ML 3ML VIAL SQ SCH (07:30)
[2024-02-16] MEDS: FENOFIBRATE 145 MG TAB PO SCH (09:00)
[2024-02-16] MEDS: EMPAGLIFLOZIN 10 MG TABLET PO SCH (09:00)
[2024-02-16] MEDS: ENALAPRIL MALEATE 5 MG TAB PO SCH (09:00)
[2024-02-16] MEDS: SODIUM CHLORIDE 0.9% 1000ML 1,000 ML IV SCH (17:55)
[2024-02-17] VITALS (7 sets, daily range): BP systolic 104–126; BP diastolic 60–77; PULSE 65–82; RESP 16–20; TEMP 97.3–98.7; O2SAT 98–100
[2024-02-17] MEDS: LOPERAMIDE HCL 2 MG CAP PO ONE (00:51)
[2024-02-17 06:24] LABS: ANION GAP 12.5 mmol/L (8-16); CALCIUM 7.9 mg/dL (8.4-10.2); CREATININE, SERUM 0.54 mg/dL (0.57-1.11); POTASSIUM 3.5 mmol/L (3.5-5.1)
[2024-02-17 11:53] LABS: % IRON SATURATION 8 % (15-50); IRON 25 ug/dL (50-170); TOTAL IRON BINDING CAPACITY 321 ug/dL (261-478); TRANSFERRIN 229 mg/dL (180-382)
[2024-02-17] MEDS: DICYCLOMINE HCL 20 MG TAB PO SCH (12:14)
[2024-02-17] MEDS: CHOLESTYRAMINE 4 GM PACKET PO SCH (12:14)
[2024-02-17 12:30] LABS: FOLATE 11.5 ng/mL (7.0-15.4)
[2024-02-17] MEDS: DIPHENHYDRAMINE HCL 25 MG CAP PO PRN (20:15)
[2024-02-18] VITALS (7 sets, daily range): BP systolic 114–138; BP diastolic 68–74; PULSE 69–84; RESP 17–18; TEMP 98–98.7; O2SAT 95–100
[2024-02-18] MEDS: HYDROCODONE/APAP 5MG-325MG TAB PO PRN (03:20)
[2024-02-18 06:06] LABS: BASOPHILS % 0.2 % (0.0-1.0); EOSINOPHILS # (AUTO) 0.1 (0.0-0.4); HEMATOCRIT 32.1 % (34.2-44.1); HEMOGLOBIN 11.1 g/dL (12.0-16.0); LYMPHOCYTES # (AUTO) 2.8 (1.0-3.2); LYMPHOCYTES % 45.9 % (18.0-39.1); MEAN CORPUSCULAR HEMOGLOBIN 29.9 pg (28-32); MEAN CORPUSCULAR HGB CONC 34.6 g/dL (31-35); MEAN CORPUSCULAR VOLUME 86.5 fL (81-99); MONOCYTES # (AUTO) 0.4 (0.2-0.8); MONOCYTES % 7.3 % (4.4-11.3); NEUTROPHILS # (AUTO) 2.8 (2.1-6.9); NEUTROPHILS % 45.6 % (38.7-80.0); PLATELET COUNT 261 x10e3/uL (140-360); RED BLOOD COUNT 3.71 x10e6/uL (3.6-5.1); WHITE BLOOD COUNT 6.04 x10e3/uL (4.8-10.8)
[2024-02-18 06:49] LABS: ANION GAP 14.6 mmol/L (8-16); CREATININE, SERUM 0.56 mg/dL (0.57-1.11); POTASSIUM 3.6 mmol/L (3.5-5.1)
[2024-02-18] MEDS: IRON SUCROSE 100 MG in SODIUM CHLORIDE 0.9% 100 ML IV SCH (08:51)
[2024-02-18] MEDS: CYANOCOBALAMIN INJ 1,000 MCG/ML VIAL IM SCH (08:52)
[2024-02-19 04:00] VITALS: BP 115/66; PULSE 62; RESP 18; TEMP 98; O2SAT 100
[2024-02-19 08:41] VITALS: BP 111/71; PULSE 66; RESP 18; TEMP 98.4; O2SAT 98
[2024-02-19 08:44] VITALS: BP 111/71; PULSE 66; RESP 18; TEMP 98.4; O2SAT 98
[2024-02-19] MEDS ORDERED: CHOLESTYRAMINE L4 GM PO (10:58)
== END 2024-02-19 12:13 | disposition home or self-care (01) | DRG 392 ==
LOC: ER 07:07 → ERHOLD 11:41 → MED/SURG2 20:44 → OBSVTOIN 02-16 16:28
PROVIDERS: ADMIT Internal Medicine; ATTEND Internal Medicine
DX: A08.4 Viral intestinal infection, unspecified (principal); E87.20 Acidosis, unspecified; E11.65 Type 2 diabetes mellitus with hyperglycemia; I10 Essential (primary) hypertension; E78.5 Hyperlipidemia, unspecified; D64.9 Anemia, unspecified; Z11.52 Encounter for screening for COVID-19; Z79.4 Long term (current) use of insulin; Z79.84 Long term (current) use of oral hypoglycemic drugs
CPT/HCPCS: 36415; 74177; 80048; 80053; 81001; 82550; 82607; 82746; 82948; 83540; 83690; 83993; 84466; 85025; 85045; 87045; 87177; 87324; 87328; 87400; 87449; 96372; 99284; G0378; J1756; J2270; J2405; J3420; J7030; J7050; J7799; Q9967; U0002

== ENCOUNTER 2025-03-25 12:08 | Emergency (ER) | payer BC, MEDICARE ==
[~2025-03-25] VITALS: Ht 139.7 cm; Wt 77.1 kg
[~2025-03-25 12:08] MED LIST changes: +CHOLESTYRAMINE L4 GM PO
[2025-03-25 12:14] VITALS: TEMP 97.4
[2025-03-25 13:56] LABS: BASOPHILS % 0.4 % (0.0-1.0); EOSINOPHILS # (AUTO) 0.1 (0.0-0.4); EOSINOPHILS % 1.1 % (0.0-6.0); HEMATOCRIT 33.2 % (34.2-44.1); HEMOGLOBIN 11.1 g/dL (12.0-16.0); LYMPHOCYTES # (AUTO) 2.4 (1.0-3.2); LYMPHOCYTES % 31.1 % (18.0-39.1); MEAN CORPUSCULAR HEMOGLOBIN 30.2 pg (28-32); MEAN CORPUSCULAR HGB CONC 33.4 g/dL (31-35); MEAN CORPUSCULAR VOLUME 90.5 fL (81-99); MONOCYTES # (AUTO) 0.3 (0.2-0.8); MONOCYTES % 4.5 % (4.4-11.3); NEUTROPHILS # (AUTO) 4.7 (2.1-6.9); NEUTROPHILS % 62.6 % (38.7-80.0); PLATELET COUNT 351 x10e3/uL (140-360); RED BLOOD COUNT 3.67 x10e6/uL (3.6-5.1); WHITE BLOOD COUNT 7.56 x10e3/uL (4.8-10.8)
[2025-03-25 14:00] LABS: INR 0.94; PROTHROMBIN TIME 13.2 seconds (11.9-14.5)
[2025-03-25 14:01] LABS: PARTIAL THROMBOPLASTIN TIME 27.7 seconds (23.8-35.5)
[2025-03-25 14:08] LABS: ANION GAP 16.3 mmol/L (8-16); BILIRUBIN,TOTAL 0.2 mg/dL (0.2-1.2); CALCIUM 8.9 mg/dL (8.4-10.2); CREATININE, SERUM 0.77 mg/dL (0.57-1.11); POTASSIUM 4.3 mmol/L (3.5-5.1); TOTAL PROTEIN 8.2 g/dL (6.5-8.1)
[2025-03-25 14:14] LABS: TROPONIN I 0.003 ng/mL (0-0.300)
[2025-03-25 15:48] VITALS: PULSE 78; RESP 12; O2SAT 100
[2025-03-25] MEDS: LORAZEPAM INJ 2 MG/ML VIAL IV ONE (16:34)
== END 2025-03-25 17:48 | disposition home or self-care (01) ==
LOC: ER 14:56
DX: R07.89 Other chest pain (principal); F41.9 Anxiety disorder, unspecified; I10 Essential (primary) hypertension; E11.9 Type 2 diabetes mellitus without complications; E78.5 Hyperlipidemia, unspecified; K86.9 Disease of pancreas, unspecified; F32.A Depression, unspecified; R94.31 Abnormal electrocardiogram [ECG] [EKG]
CPT/HCPCS: 36415; 71045; 80053; 82550; 83735; 84484; 85025; 85610; 85730; 93005; 99284; J2060